=== PATIENT | female | born 1990 | race Caucasian/White ===

== ENCOUNTER 2016-09-04 06:57 | Day surgery (SDC) | payer OTHER ==
[2016-09-03 09:53] LABS: HEMATOCRIT 38.2 % (36.0-47.0); HEMOGLOBIN 13.1 g/dL (12.0-15.5); HGB HCT DIFFERENCE 1.1; MEAN CORPUSCULAR HEMOGLOBIN 30.2 pg (27.0-33.4); MEAN CORPUSCULAR HGB CONC 34.3 g/dL (32.0-36.0); MEAN CORPUSCULAR VOLUME 88 fl (80-97); RED BLOOD COUNT 4.35 10^6/uL (3.72-5.28); RED CELL DISTRIBUTION WIDTH 13.9 % (11.5-14.0); WHITE BLOOD COUNT 6.5 10^3/uL (4.0-10.5)
[2016-09-03 10:15] LABS: ALANINE AMINOTRANSFERASE 27 U/L (9-52); ALBUMIN 3.8 g/dL (3.5-5.0); ALKALINE PHOSPHATASE 47 U/L (38-126); AMYLASE 59 U/L (30-110); ANION GAP 14 (5-19); ASPARTATE AMINO TRANSFERASE 15 U/L (14-36); BILIRUBIN,TOTAL 0.5 mg/dL (0.2-1.3); BLOOD UREA NITROGEN 14 mg/dL (7-20); CALCIUM 9.5 mg/dL (8.4-10.2); CARBON DIOXIDE 21 mmol/L (22-30); CHLORIDE 106 mmol/L (98-107); CREATININE RESULT 0.74 mg/dL (0.52-1.25); POTASSIUM 4.1 mmol/L (3.6-5.0); SODIUM 141.1 mmol/L (137-145); TOTAL PROTEIN 6.5 g/dL (6.3-8.2)
[2016-09-03 10:17] LABS: GLUCOSE 97 mg/dL (75-110)
[~2016-09-04 06:57] MED LIST: ACETAMINOPHEN 325 MG TABLET PO PRN; CEFAZOLIN SODIUM 1 GM in DEXTROSE 5%-WATER 50 ML IV PRN; LACTATED RINGERS 1000 ML IV PRN; LIDOCAINE 0.5% INJ-PF (5 MG/ML) 50 ML SDV SUBCUT PRN
[2016-09-04] MEDS ORDERED: BUPIVACAINE HCL 0.25 % INJ/PF (2.5 MG/1 ML) 30 ML VIAL ONE (09:09)
[2016-09-04] MEDS ORDERED: HYDROMORPHONE HCL INJ/PF 2 MG/ML AMPULE ONE (09:20)
[2016-09-04] MEDS ORDERED: FENTANYL CITRATE INJ/PF 250 MCG/5 ML AMPULE ONE (09:20)
[2016-09-04] MEDS ORDERED: ACETAMINOPHEN 100 ML IV ONE (09:21)
[2016-09-04] MEDS ORDERED: PROPOFOL INJ 200 MG/20 ML VIAL IV ONE (09:21)
[2016-09-04] MEDS ORDERED: MIDAZOLAM 2 MG/2 ML INJ ONE (09:21)
[2016-09-04] MEDS ORDERED: DIPHENHYDRAMINE HCL 50 MG/ML VIAL IV PRN (09:54)
[2016-09-04] MEDS ORDERED: MORPHINE SULFATE 10 MG/ML INJ IV PRN ×2 (09:54→10:11)
[2016-09-04] MEDS ORDERED: PROMETHAZINE HCL INJ 25 MG/1 ML VIAL IV PRN ×2 (09:54)
[2016-09-04] MEDS ORDERED: MEPERIDINE HCL/PF INJ 25 MG/1 ML DISP.SYRIN IV PRN (09:54)
[2016-09-04] MEDS ORDERED: FENTANYL CITRATE INJ/PF 100 MCG/2 ML AMPUL IV PRN ×3 (09:54)
[2016-09-04] MEDS ORDERED: ONDANSETRON HCL INJ/PF 4 MG/2 ML SDV IV PRN (10:11)
[2016-09-04] MEDS ORDERED: OXYCODONE-ACETAMINOPHEN 5-325 MG TABLET PO PRN (10:11)
--- NOTE | 2016-09-04 10:11 | Operative Report ---
Operative Report DATE OF SURGERY: 09/04/16 PREOPERATIVE DIAGNOSIS: Biliary dyskinesia POSTOPERATIVE DIAGNOSIS: same OPERATION: Laparoscopic cholecystectomy SURGEON: PATRICK CHERRY 1ST RETAIL FINANCIAL ANALYST: MACKENZIE SAEED ANESTHESIA: GA TISSUE REMOVED OR ALTERED: 1 gallbladder COMPLICATIONS: None ESTIMATED BLOOD LOSS: scant INTRAOPERATIVE FINDINGS: See below PROCEDURE: After obtaining informed consent, the patient was taken to the operating room. General Anesthesia was induced; the arms were extended, and the abdomen was exposed, and prepped and draped in a sterile fashion. Instrumentation was set up for laparoscopic cholecystectomy. Surgical plan and surgical timeout were conducted. A vertical incision was made above the umbilicus, and a verres needle was inserted uneventfully into the peritoneal cavity. Pneumoperitoneum was established. The verres needle was removed and a 5 mm trocar was inserted and a 5 mm flexible laparoscope was inserted. Visualization of the peritoneal cavity confirmed safe uneventful entry. Under direct visualization 3 additional 5 mm ports were established, one in the subxiphoid position and second in the subcostal position. Visualization of the hepatobiliary anatomy revealed no anatomic variations. Of note there were moderately dense adhesions between the undersurface of the gallbladder, and the gastroduodenal tissue area and these adhesions were taken down using a combination of blunt and electrocautery dissection. A grasper was placed on the fundus of the gallbladder and the gallbladder is elevated over the right surface of the liver; a second grasper was used to grasp the infundibulum of the gallbladder. The neck of the gallbladder and junction with the cystic duct was dissected out. The Cystic artery was in its usual location medial and cephalad to the cystic duct. The cystic artery was surrounded with a right angle clamp, clipped twice proximally and divided with laparoscopic scissors. We now opened the triangle of Calot by dividing the peritoneal reflection on both the medial and lateral sides of the cystic duct infundibular junction. The critical view was obtained. We now milked the cystic duct of any possible stones, clipped the cystic duct approximately 2 times once distally and divided with scissors. The gallbladder was now removed from the undersurface of the liver using hook cautery dissection. Graspers were repositioned and the gallbladder was removed uneventfully from the abdominal cavity through the super umbilical port site incision. The specimen was examined, then passed off to pathology for permanent analysis. We returned to the peritoneal cavity check for bleeding, and evidence of bile leak, and there was none. We Confirmed satisfactory placement of clips on cystic duct and cystic artery were secured . At this point we felt the operation was complete. The subcutaneous tissue was then anesthetized with quarter percent Marcaine Sponge and needle counts are correct. All ports removed under direct visualization pneumoperitoneum evacuated, and 5 mm port wounds closed with 3-0 Vicryl suture, benzoin and Steri-Strips. The patient was extubated, and taken to the recovery room in stable condition. The physician transportation assistant, Ms. Saeed, provided assistance during this case by: Assisting and port insertion, retracting tissue, instillation of local anesthesia and closure of skin incisions.
--- NOTE | 2016-09-04 10:16 | PDOC DISCHARGE SUMMARY ---
Discharge Summary (SDC) - Discharge Final Diagnosis: Biliary dyskinesia Date of Surgery: 09/04/16 Condition: Good Treatment or Instructions: [facility] [address], [place] [address] Discharge Instructions: Laparoscopic Surgery 1. General Information: a. DO NOT DRIVE a car or operate dangerous machinery for 3-4 days or while taking narcotic pain pills. b. DO NOT consume alcohol, tranquilizers, sleeping medications or any non- prescribed medications for 24 hours unless approved by your doctor or as long as taking narcotic prescription medications. c. DO NOT make important decisions or sign any important papers for the first 24 hours after surgery. d. When discharged home the same day of surgery have a responsible person with you for the first night. 2. Activity Restrictions: 2 weeks. a. NO heavy lifting, straining abdominal muscles, bending over a lot, yard work, house work, or sports for [address] for 3-4 days or while taking Percocet . c. It is fine to go for walks, up and down steps, ride in a car. d. Elevate your head when sleeping/resting. 3. Treatment: a. You may shower 24 hours after surgery, no baths or swimming for 2 weeks. Remove band-aids or dressings before shower but leave paper strips (steri-strips ) on the skin to fall off on their own. If still on at postoperative visit they will be removed then. b. Drainage of fluid or blood is not unusual from an incision. If occurs, you can clean with peroxide and cotton ball daily and cover with dry gauze until the wound seals. c. If a lot of bleeding occurs, you can hold pressure with a gauze or cloth over the site for 10 minutes and it will usually stop. If bleeding continues you will need to call for possible evaluation in office or emergency room. 4. Medications: a. percocet may be taken for pain as needed, one or two tablets every 4-6 hours. Stop the narcotic when able since you cannot take it and drive, and they cause constipation. You may switch to plain Tylenol, Advil or Aleve as you transition from the narcotic. Many adults find good pain relief with Advil 600- 800 mg three times a day with meals. This can cause indigestion, ulcers, and kidney problems with long-term use. b. You should resume all normal medications unless a change is specified by your doctors. c. Begin with clear liquids and may progress to your normal diet if not nauseated. No high fat, high protein foods the day of surgery. Normal diet 6. The following may occur after laparoscopic surgery: a. Shoulder or upper back ache from retained gas that should resolve in 1-2 days b. Soreness and bruising at incision sites will resolve with time. c. Scrotal swelling (labia in women) and bruising is often seen after hernia surgery. d. Sore throat e. Fatigue may last days to weeks. f. Difficulty urinating may occur and may need to come into emergency room for urinary catheter placement. 7. Notify Physician If: a. Worsening or pain not improved with pain medication b. Persistent nausea and vomiting c. Fever above 101 d. Persistent bleeding or swelling at operative site e. Unable to urinate and uncomfortable bladder 6-8 hours after surgery 8..Follow Up Care: a. Schedule a follow up appointment with your doctor for 2 weeks. In the event of any postoperative problems or questions or you may call the office during business hours or the On-Call physician evenings and weekends at [facility]. [facility] I understand the instructions for my postoperative care as described above and a copy has been given to me. Patient/Significant Other Witness Date Prescriptions: Oxycodone HCl/Acetaminophen [Percocet 2.5-325 Mg Tablet] 1 each PO Q4 PRN #14 tablet PRN Reason: Discharge Activity: Activity As Tolerated Home Care Assistance: None Needed Report the Following to Your Physician Immediately: Shortness of Breath, Increase in Pain, Fever over 101 Degrees
[2016-09-04] MEDS ORDERED: FENTANYL CITRATE INJ/PF 100 MCG/2 ML AMPUL ONE (10:45)
[2016-09-04] MEDS ORDERED: DEXAMETHASONE SOD PHOSPHATE INJ 4 MG/1 ML VIAL ONE (12:25)
[2016-09-04] MEDS ORDERED: NEOSTIGMINE METHYLSULFATE 10 MG/10 ML VIAL ONE (12:25)
[2016-09-04] MEDS ORDERED: GLYCOPYRROLATE INJ 0.4 MG/2 ML VIAL ONE (12:25)
[2016-09-04] MEDS ORDERED: ROCURONIUM BROMIDE INJ 50 MG/5 ML VIAL IV ONE (12:25)
[2016-09-04] MEDS ORDERED: ONDANSETRON HCL INJ/PF 4 MG/2 ML SDV ONE (12:25)
[2016-09-04 12:43] VITALS: BP 126/77
== END 2016-09-04 12:25 | disposition home or self-care (01) ==
LOC: OROUT 06:57
PROVIDERS: ATTEND Surgery
PROC: 0FT44ZZ Resection of Gallbladder, Percutaneous Endoscopic Approach (ICD-10-PCS; principal; 2016-09-04 09:00)
DX: K81.1 Chronic cholecystitis (principal); K82.8 Other specified diseases of gallbladder; F17.210 Nicotine dependence, cigarettes, uncomplicated; Z88.5 Allergy status to narcotic agent
CPT/HCPCS: 36415; 82150; 85027; 81025; 80076; 80048; 88304 ×2; 47562; J2250; J0690; J3490; J1100; J3010 ×2; J1170; J2405; J2704; J0131; 790

== ENCOUNTER 2018-07-12 23:20 | Emergency (ER) | payer OTHER ==
--- NOTE | 2018-07-13 00:06 | ER Document Report ---
ED General - General Chief Complaint: Chest Pain, arm pain & numbness, dizziness Stated Complaint: CHEST PAIN, ARM PAIN NUMBNESS, DIZZY Time Seen by Provider: 07/12/18 23:50 TRAVEL OUTSIDE OF THE [place] IN LAST 30 DAYS: No - HPI Patient complains to provider of: chest pain today, dizziness yesterday Notes: 27-year-old female with past medical history of asthma presents to the emergency department for chest pain since today, dizziness yesterday, that started with arm pain and numbness 4 days ago. She denies any lightheadedness, diaphoresis, dizziness, numbness or tingling, nausea, vomiting currently at this time. She said chest pain is "mild discomfort", pain score as 1 patient endorses having palpitations for the last 2-3 years with a previous workup that was negative. Patient currently smokes half pack per day times 16 years. - Related Data Allergies/Adverse Reactions: Tuberculin,Ppd,Multi-Puncture [From Tuberculin PPD Jen Test] Allergy (Severe, Verified 09/03/16 08:20) Anaphylaxis tramadol Adverse Reaction (Verified 09/03/16 13:31) VOMITING Past Medical History - General Information source: Patient - Social History Smoking Status: Current Every Day Smoker Cigarette use (# per day): Yes - 10 Chew tobacco use (# tins/day): No Frequency of alcohol use: None Drug Abuse: None Lives with: Spouse/Significant other Family History: Reviewed & Not Pertinent - Past Medical History Cardiac Medical History: Denies: Hx Coronary Artery Disease, Hx Heart Attack, Hx Hypertension Pulmonary Medical History: Reports: Hx Asthma - as a child and teenager Denies: Hx Bronchitis, Hx COPD, Hx Pneumonia Neurological Medical History: Denies: Hx Cerebrovascular Accident, Hx Seizures Musculoskeletal Medical History: Denies Hx Arthritis Past Surgical History: Reports: Hx Gynecologic Surgery - r/o endometriosis - Immunizations Hx Diphtheria, Pertussis, Tetanus Vaccination: Yes Review of Systems - Review of Systems Constitutional: denies: Chills, Diaphoresis, Weakness EENT: No symptoms reported Cardiovascular: See HPI, Chest pain, Dizziness. denies: Palpitations, Syncope, Lightheaded Respiratory: No symptoms reported Gastrointestinal: No symptoms reported Genitourinary: No symptoms reported Musculoskeletal: No symptoms reported Neurological/Psychological: Numbness - 4 days ago left arm Physical Exam - Vital signs Vitals: Temp Pulse Resp BP Pulse Ox 98.1 F 80 16 129/73 H 99 07/12/18 23:45 07/12/18 23:45 07/12/18 23:45 07/12/18 23:45 07/12/18 23:45 Interpretation: Normal - General General appearance: Appears well, Alert In distress: None - HEENT Head: Normocephalic, Atraumatic Eyes: Normal Extraocular movements intact: Yes Pupils: PERRL Neck: Normal - Respiratory Respiratory status: No respiratory distress Chest status: Nontender Breath sounds: Normal Chest palpation: Normal - Cardiovascular Rhythm: Regular Heart sounds: Normal auscultation Murmur: No - Abdominal Inspection: Normal Distension: No distension Bowel sounds: Normal Tenderness: Nontender Organomegaly: No organomegaly - Back Back: Normal, Nontender - Extremities General upper extremity: Normal inspection, Nontender, Normal color, Normal ROM , Normal temperature General lower extremity: Normal inspection, Nontender, Normal color, Normal ROM , Normal temperature, Normal weight bearing. No: Yessi's sign - Neurological Neuro grossly intact: Yes Cognition: Normal Orientation: AAOx4 Kaylin Coma Scale Eye Opening: Spontaneous Kaylin Coma Scale Verbal: Oriented Kaylin Coma Scale Motor: Obeys Commands Kaylin Coma Scale Total: 15 Speech: Normal Motor strength normal: LUE, RUE, LLE, RLE Sensory: Normal - Psychological Associated symptoms: Normal affect, Normal mood - Skin Skin Temperature: Warm Skin Moisture: Dry Skin Color: Normal Course - Re-evaluation Re-evalutation: 07/13/18 00:[address] Holloway. Plan to get chest x-ray, troponin, BMP, and CBC. 07/13/18 00:58 Chest x-ray showed no focal infiltrate, no abnormalities. Initial troponin was negative. Platelets at 144,000, BMP was unremarkable 07/13/18 04:21 Second troponin was negative. Patient is stable for discharge. - Vital Signs Vital signs: Temp Pulse Resp BP Pulse Ox 98.1 F 80 16 129/73 H 99 07/12/18 23:45 07/12/18 23:45 07/12/18 23:45 07/12/18 23:45 07/12/18 23:45 - Laboratory Result Diagrams: 07/13/18 00:08 07/13/18 00:08 Laboratory results interpreted by me: 07/13/18 07/13/18 00:08 00:08 RDW 14.1 H Plt Count 144 L Chloride 108 H Discharge - Discharge Clinical Impression: Chest pain of uncertain etiology Condition: Good Disposition: HOME, SELF-CARE Instructions: Chest Pain of Unclear Cause ([facility]) Additional Instructions: You were seen today for chest pain. The exact cause of your pain is unclear. However, based on your cardiac enzyme testing, chest x-ray, and EKG it does not appear that it is from an immediately life-threatening cause at this time. Although your testing here is normal is critical that you follow-up with your primary care physician within the next 24-48 hours for continued evaluation of this chest pain and possible stress testing. Please return to emergency department immediately if you have worsening of your chest pain, shortness of breath, vomiting, become unable to exert yourself due to pain or difficulty breathing, you pass out, or have any pain that radiates into your arms, jaw, or back. Please also return if you have any additional symptoms that are concerning to you. Referrals: RAMIRO ENGLISH, DO [Primary Care Provider] - Follow up as needed
[2018-07-13 00:24] LABS: ABSOLUTE BASOPHILS # (AUTO) 0.1 10^3/uL (0.0-0.2); ABSOLUTE EOSINOPHILS # (AUTO) 0.3 10^3/uL (0.0-0.6); ABSOLUTE LYMPHOCYTES (AUTO) 1.5 10^3/uL (0.5-4.7); ABSOLUTE MONOCYTES (AUTO) 0.4 10^3/uL (0.1-1.4); ABSOLUTE NEUT (AUTO) 3.2 10^3/uL (1.7-8.2); BASOPHILS % (AUTO) 1.3 % (0-2); HEMATOCRIT 37.7 % (36.0-47.0); HEMOGLOBIN 12.8 g/dL (12.0-15.5); LYMPHOCYTES % (AUTO) 26.8 % (13-45); MEAN CORPUSCULAR HEMOGLOBIN 30.5 pg (27.0-33.4); MEAN CORPUSCULAR HGB CONC 33.9 g/dL (32.0-36.0); MEAN CORPUSCULAR VOLUME 90 fl (80-97); PLATELET COUNT 144 10^3/uL (150-450); RED CELL DISTRIBUTION WIDTH 14.1 % (11.5-14.0); SEGMENTED NEUTROPHILS % (AUTO) 58.9 % (42-78); TOTAL CELLS COUNTED % (AUTO) 100 %; WHITE BLOOD COUNT 5.5 10^3/uL (4.0-10.5)
[2018-07-13 00:40] LABS: BLOOD UREA NITROGEN 14 mg/dL (7-20); CALCIUM 9.5 mg/dL (8.4-10.2); CARBON DIOXIDE 24 mmol/L (22-30); CHLORIDE 108 mmol/L (98-107); GLUCOSE 99 mg/dL (75-110); POTASSIUM 3.8 mmol/L (3.6-5.0)
[2018-07-13 00:41] LABS: ANION GAP 12 (5-19)
--- NOTE | 2018-07-13 00:57 | RADIOLOGY REPORT (SQ) ---
EXAM DESCRIPTION: XR CHEST 1 VIEW COMPLETED DATE/TME: 07/13/2018 00:06 CLINICAL HISTORY: 27 years, Female, chest pain COMPARISON: None. NUMBER OF VIEWS: TECHNIQUE: LIMITATIONS: None. FINDINGS: No evidence of pulmonary infiltrate or pleural effusion. The heart and mediastinum are unremarkable. Pulmonary vascularity appears normal. IMPRESSION: Normal chest x-ray. 2010 [employer]- All Rights Reserved
[2018-07-13 04:33] VITALS: BP 117/67
--- NOTE | 2018-07-13 06:23 | EKG REPORT ---
SEVERITY:- BORDERLINE ECG - SINUS RHYTHM PROBABLE LEFT ATRIAL ABNORMALITY BORDERLINE T ABNORMALITIES, ANTERIOR LEADS : Confirmed by: Juvencio Reed MD 13-Jul-2018 06:22:23
== END 2018-07-13 04:37 | disposition home or self-care (01) ==
LOC: ER 23:20
DX: R07.9 Chest pain, unspecified (principal); R00.2 Palpitations; R42 Dizziness and giddiness; F17.210 Nicotine dependence, cigarettes, uncomplicated; Z88.7 Allergy status to serum and vaccine
CPT/HCPCS: 36415; 71045; 80048; 84484; 85025; 93005; 93010; 99285

== ENCOUNTER 2018-10-13 21:16 | Emergency (ER) | payer OTHER ==
[2018-10-14] MEDS ORDERED: METOCLOPRAMIDE HCL INJ/PF 10 MG/2 ML SDV IV ONE (00:09)
[2018-10-14] MEDS ORDERED: DIPHENHYDRAMINE HCL 50 MG/ML VIAL IV ONE (00:09)
[2018-10-14] MEDS ORDERED: NORMAL SALINE 500 ML IV ONE (00:11)
[2018-10-14] MEDS ORDERED: TRANEXAMIC ACID INJ/PF 1,000 MG/10 ML SDV IV ONE (00:15)
--- NOTE | 2018-10-14 00:16 | ER Document Report ---
ED General - General Chief Complaint: Vaginal Bleeding Stated Complaint: vaginal bleeding Time Seen by Provider: 10/13/18 23:55 Primary Care Provider: RAMIRO ENGLISH DO [Primary Care Provider] - Follow up as needed Mode of Arrival: Ambulatory Information source: Patient, [facility] Records Notes: 28-year-old female with pelvic dysfunction disorder, bladder prolapse, th rombocytopenia presents with concern for 3 weeks of heavy vaginal bleeding. Patient states that she has been bleeding for 3 weeks consistently. She reports that she is passing large clots and is requiring to change her tampon every hour. Patient denies prior similar heavy periods. She is on control currently. She does not believe that she is . Patient also complaining of headache but denies nausea, photophobia, dizziness, shortness of breath, palpitations. Patient does state that she is currently working with her MANAGER GENERAL for her bladder prolapse and they have discussed possible hysterectomy. Patient also reports abdominal cramping that has not been relieved with Motrin, Tylenol. TRAVEL OUTSIDE OF THE [place] IN LAST 30 DAYS: No - HPI Onset: Other Onset/Duration: Gradual Quality of pain: Cramping Severity: Mild Associated symptoms: denies: Chest pain, Productive cough, Fever, Nausea, Vomiting, Shortness of breath Exacerbated by: Denies Relieved by: Denies Similar symptoms previously: No Recently seen / treated by doctor: Yes - Related Data Allergies/Adverse Reactions: Tuberculin,Ppd,Multi-Puncture [From Tuberculin PPD Jen Test] Allergy (Severe, Verified 09/03/16 08:20) Anaphylaxis tramadol Adverse Reaction (Verified 09/03/16 13:31) VOMITING Past Medical History - General Information source: Patient, [facility] Records - Social History Smoking Status: Current Every Day Smoker Cigarette use (# per day): Yes - 5 Smoking Education Provided: Yes - Smoking cessation counseling was provided for 4 minutes at the bedside Frequency of alcohol use: None Drug Abuse: None Lives with: Family Family History: Reviewed & Not Pertinent Patient has suicidal ideation: No Patient has homicidal ideation: No - Past Medical History Cardiac Medical History: Denies: Hx Coronary Artery Disease, Hx Heart Attack, Hx Hypertension Pulmonary Medical History: Reports: Hx Asthma - as a child and teenager Denies: Hx Bronchitis, Hx COPD, Hx Pneumonia Neurological Medical History: Denies: Hx Cerebrovascular Accident, Hx Seizures Renal/ Medical History: Denies: Hx Peritoneal Dialysis Musculoskeletal Medical History: Denies Hx Arthritis Past Surgical History: Reports: Hx Gynecologic Surgery - r/o endometriosis - Immunizations Hx Diphtheria, Pertussis, Tetanus Vaccination: Yes Review of Systems - Review of Systems Notes: REVIEW OF SYSTEMS: CONSTITUTIONAL : Denies fever, chills, or sweats. Denies recent illness. Denies weight loss, recent hospitalizations. EENT: Denies visual changes, eye pain. Denies sore throat, oral lesions, difficulty swallowing. CARDIOVASCULAR: Denies chest pain. Denies palpitations. Denies lower extremity edema. RESPIRATORY: Denies cough. Denies shortness of breath, wheezing. GASTROINTESTINAL: Denies abdominal distention. Denies nausea, vomiting, or diarrhea. Denies blood in vomitus, stools, or per rectum. Denies black, tarry stools. Denies constipation. GENITOURINARY: Denies difficulty urinating, painful urination, frequency, blood in urine, or vaginal discharge. MUSCULOSKELETAL: Denies back or neck pain or stiffness. Denies joint pain or swelling. SKIN: Denies rash, lesions or sores. HEMATOLOGIC : Denies easy bruising or bleeding. LYMPHATIC: Denies swollen glands. NEUROLOGICAL: Denies confusion or altered mental status. Denies loss of consciousness. Denies dizziness or lightheadedness. Denies weakness or paralysis. Denies problems difficulty with ambulation, slurred speech. Denies sensory loss, numbness, or tingling. Denies seizures. PSYCHIATRIC: Denies anxiety or stress. Denies depression, suicidal ideation, or homicidal ideation. Denies visual or auditory hallucinations. PHYSICAL EXAMINATION: GENERAL: Well-appearing, well-nourished and in no acute distress. HEAD: Atraumatic, normocephalic. EYES: Pupils equal round and reactive to light, extraocular movements intact, conjunctiva are normal. ENT: Nares patent, oropharynx clear without exudates. Moist mucous membranes. NECK: Normal range of motion, supple without lymphadenopathy LUNGS: Breath sounds clear to auscultation bilaterally and equal. No wheezes rales or rhonchi. HEART: Regular rate and rhythm without murmurs ABDOMEN: Soft, nontender, nondistended abdomen. No guarding, no rebound. No masses appreciated. Female : Ox closed, vaginal wall unremarkable, external genitalia unremarkable, heavy bleeding. No cervical motion tenderness. Musculoskeletal: Normal range of motion, no pitting or edema. No cyanosis. NEUROLOGICAL: Cranial nerves grossly intact. Normal speech, normal gait. Normal sensory, motor exams PSYCH: Normal mood, normal affect. SKIN: Warm, Dry, normal turgor, no rashes or lesions noted. Physical Exam - Vital signs Vitals: Temp Pulse Resp BP Pulse Ox 98.3 F 82 16 127/83 H 98 10/13/18 21:20 10/13/18 21:20 10/13/18 21:20 10/13/18 21:20 10/13/18 21:20 Course - Re-evaluation Re-evalutation: Temp Pulse Resp BP Pulse Ox 98.3 F 82 16 127/83 H 98 10/13/18 21:20 10/13/18 21:20 10/13/18 21:20 10/13/18 21:20 10/13/18 21:20 Laboratory 10/14/18 10/14/18 01:10 01:10 WBC 5.5 RBC 4.41 Hgb 13.4 Hct 39.0 MCV 88 MCH 30.3 MCHC 34.3 RDW 13.2 Plt Count 168 Seg Neutrophils % 49.2 Lymphocytes % 39.0 Monocytes % 6.5 Eosinophils % 4.8 Basophils % 0.5 Absolute Neutrophils 2.7 Absolute Lymphocytes 2.1 Absolute Monocytes 0.4 Absolute Eosinophils 0.3 Absolute Basophils 0.0 Urine Color YELLOW Urine Appearance SLIGHTLY-CLOUDY Urine pH 7.0 Ur Specific [place] 1.023 Urine Protein NEGATIVE Urine Glucose (UA) NEGATIVE Urine Ketones NEGATIVE Urine Blood NEGATIVE Urine Nitrite NEGATIVE Urine Bilirubin NEGATIVE Urine Urobilinogen NEGATIVE Ur Leukocyte Esterase NEGATIVE Urine WBC (Auto) 0 Urine RBC (Auto) 1 Squamous Epi Cells Auto 1 Urine Mucus (Auto) RARE Urine Ascorbic Acid NEGATIVE Urine HCG, Qual NEGATIVE Temp Pulse Resp BP Pulse Ox 97.9 F 69 16 119/68 98 10/14/18 01:34 10/14/18 01:34 10/14/18 01:34 10/14/18 01:34 10/14/18 01:34 10/14/18 00:14 28-year-old female presents with concern of heavy vaginal bleeding that has been ongoing for 3 weeks. Vital signs reviewed upon arrival and patient is afebrile, normotensive and not tachycardic. Patient does not appear toxic or dehydrated. She is in no acute distress. Previous medical records and nursing notes reviewed. Patient received IV fluids, Reglan, Benadryl and Toradol for her headache which she reports has resolved on reevaluation. CBC shows a stable he moglobin and patient is not . Patient did receive TXA for her heavy vaginal bleeding. She will be prescribed this for home-going. She was advised to follow-up with her MANAGER GENERAL as already scheduled to discuss possible hysterectomy. Patient was evaluated and treated as appropriate for the p atient's presenting symptoms and complaint, with consideration of any critical or life threatening conditions that may be associated with their obtained history and exam as noted above. All results were discussed with patient. Patient provided the opportunity to ask questions, and express concerns. Patient was educated on treatments based on their presumed diagnosis as noted above. At this time we will discharge the patient with return precautions and follow-up recommendations. Verbal discharge instructions given a the bedside. Medication warnings reviewed. Patient is in agreement with this plan and has verbalized understanding of return precautions. After careful consideration I feel that that patient can be safely discharged from the emergency department, they were advised to followup with a primary care physician in 2-3 days. Dictation on this chart was performed using voice recognition software and may result in unintended grammatical, spelling, syntax or errors. 10/14/18 02:08 - Vital Signs Vital signs: Temp Pulse Resp BP Pulse Ox 97.9 F 69 16 119/68 98 10/14/18 01:34 10/14/18 01:34 10/14/18 01:34 10/14/18 01:34 10/14/18 01:34 - Laboratory Result Diagrams: 10/14/18 01:10 Discharge - Discharge Clinical Impression: Abdominal cramping, Episode of heavy vaginal bleeding Headache Qualifiers: Headache type: unspecified Headache chronicity pattern: acute headache Intractability: not intractable Qualified Code(s): R51 - Headache Condition: Good Disposition: HOME, SELF-CARE Instructions: Headache ([facility]), Vaginal Bleeding ([facility]), Abdominal Pain ([facility]) Prescriptions: Tranexamic Acid 1,300 mg PO Q8H #30 tablet Forms: Smoking Cessation Education Referrals: RAMIRO ENGLISH, [Primary Care Provider] - Follow up as needed
[2018-10-14 01:27] LABS: ABSOLUTE EOSINOPHILS # (AUTO) 0.3 10^3/uL (0.0-0.6); ABSOLUTE LYMPHOCYTES (AUTO) 2.1 10^3/uL (0.5-4.7); ABSOLUTE MONOCYTES (AUTO) 0.4 10^3/uL (0.1-1.4); ABSOLUTE NEUT (AUTO) 2.7 10^3/uL (1.7-8.2); BASOPHILS % (AUTO) 0.5 % (0-2); EOSINOPHILS % (AUTO) 4.8 % (0-6); HEMOGLOBIN 13.4 g/dL (12.0-15.5); MEAN CORPUSCULAR HEMOGLOBIN 30.3 pg (27.0-33.4); MEAN CORPUSCULAR HGB CONC 34.3 g/dL (32.0-36.0); MEAN CORPUSCULAR VOLUME 88 fl (80-97); MONOCYTES % (AUTO) 6.5 % (3-13); PLATELET COUNT 168 10^3/uL (150-450); RED BLOOD COUNT 4.41 10^6/uL (3.72-5.28); RED CELL DISTRIBUTION WIDTH 13.2 % (11.5-14.0); SEGMENTED NEUTROPHILS % (AUTO) 49.2 % (42-78); TOTAL CELLS COUNTED % (AUTO) 100 %; WHITE BLOOD COUNT 5.5 10^3/uL (4.0-10.5)
[2018-10-14 01:36] LABS: APPEARANCE,URINE SLIGHTLY-CLOUDY; BILIRUBIN,URINE NEGATIVE (NEGATIVE); COLOR,URINE YELLOW; GLUCOSE, URINE NEGATIVE (NEGATIVE); KETONES,URINE NEGATIVE (NEGATIVE); LEUKOCYTE ESTERASE,URINE NEGATIVE (NEGATIVE); NITRITE,URINE NEGATIVE (NEGATIVE); PROTEIN,URINE NEGATIVE (NEGATIVE); URINE SPECIFIC GRAVITY 1.023; UROBILINOGEN,URINE NEGATIVE mg/dL (<2.0)
[2018-10-14] MEDS ORDERED: KETOROLAC TROMETHAMINE INJ/PF 30 MG/1 ML SDV IV ONE (01:38)
[2018-10-14 03:17] VITALS: BP 111/68
== END 2018-10-14 03:21 | disposition home or self-care (01) ==
LOC: ER 21:16
DX: N93.9 Abnormal uterine and vaginal bleeding, unspecified (principal); N81.10 Cystocele, unspecified; R10.9 Unspecified abdominal pain; R51 Headache; F17.210 Nicotine dependence, cigarettes, uncomplicated; Z71.6 Tobacco abuse counseling; Z79.3 Long term (current) use of hormonal contraceptives; Z88.7 Allergy status to serum and vaccine; Z87.892 Personal history of anaphylaxis
CPT/HCPCS: 99406; 99284; 96375; 96365; 36415; 84702; 85025; 81025; 81001; J1200; J1885; J2765; J7040; J3490

== ENCOUNTER 2018-12-07 12:48 | Emergency (ER) | payer OTHER ==
[2018-12-07] MEDS ORDERED: ONDANSETRON HCL INJ/PF 4 MG/2 ML SDV IV ONE ×2 (13:29→15:48)
[2018-12-07] MEDS ORDERED: NORMAL SALINE 1000 ML 1,000 ML IV ONE ×2 (13:29→16:49)
--- NOTE | 2018-12-07 13:31 | ER Document Report ---
ED Medical Screen (RME) - General Chief Complaint: Abdominal Pain Stated Complaint: ABDOMINAL PAIN Time Seen by Provider: 12/07/18 13:25 Primary Care Provider: RAMIRO ENGLISH DO [Primary Care Provider] - Follow up as needed Mode of Arrival: Wheelchair Information source: Patient Notes: Patient is a 28-year-old female who presents to the emergency department with complaints of abdominal pain with nausea, vomiting and diarrhea on . Patient denies any fever. Reports the pain is located in the mid abdomen and right lower quadrant. She denies any dysuria or abnormal vaginal discharge. Patient reports surgical history of a cholecystectomy. Exam: Generalized tenderness to palpation. Exam limited by patient positioning. I have greeted and performed a rapid initial assessment of this patient. A comprehensive ED assessment and evaluation of the patient, analysis of test results and completion of the medical decision making process will be conducted by additional ED providers. Dictation of this chart was performed using voice recognition software; therefore, there may be some unintended grammatical errors. TRAVEL OUTSIDE OF THE [place] IN LAST 30 DAYS: No - Related Data Allergies/Adverse Reactions: Tuberculin,Ppd,Multi-Puncture [From Tuberculin PPD Jen Test] Allergy (Severe, Verified 12/07/18 13:00) Anaphylaxis tramadol Adverse Reaction (Verified 12/07/18 13:00) VOMITING Past Medical History - Social History Chew tobacco use (# tins/day): - 1/2 ppd Frequency of alcohol use: None Drug Abuse: None - Past Medical History Cardiac Medical History: Denies: Hx Coronary Artery Disease, Hx Heart Attack, Hx Hypertension Pulmonary Medical History: Reports: Hx Asthma - as a child and teenager Denies: Hx Bronchitis, Hx COPD, Hx Pneumonia Neurological Medical History: Denies: Hx Cerebrovascular Accident, Hx Seizures Renal/ Medical History: Denies: Hx Peritoneal Dialysis Musculoskeltal Medical History: Denies Hx Arthritis Past Surgical History: Reports: Hx Cholecystectomy, Hx Gynecologic Surgery - r/o endometriosis - Immunizations Hx Diphtheria, Pertussis, Tetanus Vaccination: Yes Physical Exam - Vital signs Vitals: Temp Pulse Resp BP Pulse Ox 98.0 F 116 H 16 151/105 H 95 12/07/18 13:02 12/07/18 13:02 12/07/18 13:02 12/07/18 13:02 12/07/18 13:02 Course - Vital Signs Vital signs: Temp Pulse Resp BP Pulse Ox 98.0 F 116 H 16 151/105 H 95 12/07/18 13:02 12/07/18 13:02 12/07/18 13:02 12/07/18 13:02 12/07/18 13:02 Doctor's Discharge - Discharge Referrals: RAMIRO ENGLISH DO [Primary Care Provider] - Follow up as needed
[2018-12-07 14:43] LABS: ABSOLUTE EOSINOPHILS # (AUTO) 0.2 10^3/uL (0.0-0.6); ABSOLUTE LYMPHOCYTES (AUTO) 1.1 10^3/uL (0.5-4.7); ABSOLUTE MONOCYTES (AUTO) 0.4 10^3/uL (0.1-1.4); ABSOLUTE NEUT (AUTO) 4.2 10^3/uL (1.7-8.2); BASOPHILS % (AUTO) 0.4 % (0-2); EOSINOPHILS % (AUTO) 2.9 % (0-6); HEMATOCRIT 43.7 % (36.0-47.0); HEMOGLOBIN 15.2 g/dL (12.0-15.5); LYMPHOCYTES % (AUTO) 18.7 % (13-45); MEAN CORPUSCULAR HEMOGLOBIN 30.5 pg (27.0-33.4); MEAN CORPUSCULAR HGB CONC 34.8 g/dL (32.0-36.0); MEAN CORPUSCULAR VOLUME 88 fl (80-97); MONOCYTES % (AUTO) 7.4 % (3-13); PLATELET COUNT 154 10^3/uL (150-450); RED BLOOD COUNT 4.99 10^6/uL (3.72-5.28); RED CELL DISTRIBUTION WIDTH 13.6 % (11.5-14.0); SEGMENTED NEUTROPHILS % (AUTO) 70.6 % (42-78); TOTAL CELLS COUNTED % (AUTO) 100 %; WHITE BLOOD COUNT 5.9 10^3/uL (4.0-10.5)
[2018-12-07] MEDS ORDERED: FENTANYL CITRATE INJ/PF 100 MCG/2 ML AMPUL IV ONE (14:53)
[2018-12-07 14:55] LABS: ALANINE AMINOTRANSFERASE 29 U/L (9-52); ALBUMIN 4.6 g/dL (3.5-5.0); ALKALINE PHOSPHATASE 84 U/L (38-126); ANION GAP 11 (5-19); ASPARTATE AMINO TRANSFERASE 27 U/L (14-36); BILIRUBIN,DIRECT 0.3 mg/dL (0.0-0.4); BILIRUBIN,TOTAL 0.4 mg/dL (0.2-1.3); BLOOD UREA NITROGEN 10 mg/dL (7-20); CALCIUM 9.8 mg/dL (8.4-10.2); CARBON DIOXIDE 20 mmol/L (22-30); CHLORIDE 108 mmol/L (98-107); GLUCOSE 94 mg/dL (75-110); LIPASE 86.1 U/L (23-300); POTASSIUM 3.5 mmol/L (3.6-5.0); SODIUM 139.1 mmol/L (137-145); TOTAL PROTEIN 7.8 g/dL (6.3-8.2)
--- NOTE | 2018-12-07 15:06 | ER Document Report ---
ED General - General Chief Complaint: Abdominal Pain Stated Complaint: ABDOMINAL PAIN Time Seen by Provider: 12/07/18 13:25 Primary Care Provider: RAMIRO ENGLISH DO [NO LOCAL MD] - Follow up in 3-5 days MAN BARON MD [ACTIVE STAFF] - Follow up tomorrow Mode of Arrival: Wheelchair Notes: Patient is a 28-year-old female who presents the emergency department with a chief complaint of abdominal pain. She states that her pain is at her umbilicus and radiates to her right side. States that she has had nausea, vomiting, diarrhea. Her last bout of vomiting was 2 days ago. She has had diarrhea every hour for the past few days. Past surgical history includes cholecystectomy. She is scheduled for hysterectomy for pelvic floor dysfunction, bladder prolapse, and rectocele. She is currently on Zoloft for her depression. Denies any headache, trauma, vaginal discharge, dysuria, or chest pain. TRAVEL OUTSIDE OF THE [place] IN LAST 30 DAYS: No - Related Data Allergies/Adverse Reactions: Tuberculin,Ppd,Multi-Puncture [From Tuberculin PPD Jen Test] Allergy (Severe, Verified 12/07/18 13:00) Anaphylaxis tramadol Adverse Reaction (Verified 12/07/18 13:00) VOMITING Past Medical History - General Information source: Patient - Social History Smoking Status: Current Every Day Smoker Chew tobacco use (# tins/day): - 1/2 ppd Frequency of alcohol use: None Drug Abuse: None Family History: Reviewed & Not Pertinent Patient has suicidal ideation: No Patient has homicidal ideation: No - Past Medical History Cardiac Medical History: Denies: Hx Coronary Artery Disease, Hx Heart Attack, Hx Hypertension Pulmonary Medical History: Reports: Hx Asthma - as a child and teenager Denies: Hx Bronchitis, Hx COPD, Hx Pneumonia Neurological Medical History: Denies: Hx Cerebrovascular Accident, Hx Seizures Renal/ Medical History: Denies: Hx Peritoneal Dialysis Musculoskeletal Medical History: Denies Hx Arthritis Past Surgical History: Reports: Hx Cholecystectomy, Hx Gynecologic Surgery - r/o endometriosis - Immunizations Hx Diphtheria, Pertussis, Tetanus Vaccination: Yes Review of Systems - Review of Systems Notes: REVIEW OF SYSTEMS: CONSTITUTIONAL : Denies recent illness. Denies recent unintentional weight loss. Denies fever, chills, or sweats. EENT: Denies eye, ear, throat, or mouth pain, discharge, or symptoms. Denies nasal or sinus congestion. CARDIOVASCULAR: Denies chest pain. RESPIRATORY: Denies shortness of breath, cough, congestion, difficulty breathing, or wheezing. GASTROINTESTINAL: See HPI. GENITOURINARY: Denies difficulty urinating, burning, blood in urine, urgency or frequency. MUSCULOSKELETAL: Denies neck and back pain. Denies joint pain or swelling. SKIN: Denies rash, itchiness, or lesions HEMATOLOGIC : Denies easy bruising or bleeding. LYMPHATIC: Denies swollen, painful, enlarged glands. NEUROLOGICAL: Denies no numbness or tingling denies weakness. Denies headache. Denies altered mental status. Denies alteration in speech. PSYCHIATRIC: Denies stress, anxiety, alteration in sleep patterns, or depression. All other systems reviewed and negative. Physical Exam - Vital signs Vitals: Temp Pulse Resp BP Pulse Ox 98.0 F 116 H 16 151/105 H 95 12/07/18 13:02 12/07/18 13:02 12/07/18 13:02 12/07/18 13:02 12/07/18 13:02 - Notes Notes: PHYSICAL EXAMINATION: GENERAL: Appears well, healthy, well-nourished, no acute distress. HEAD: Normocephalic, atraumatic. EYES: PERRL, conjunctiva normal, all extraocular movements intact, sclera nonicteric ENT: Moist mucous membranes. NECK: Supple, no noticeable swelling, redness, rash. Normal range of motion. LUNGS: Equal breath sounds bilaterally and clear to auscultation. No wheezes rales or rhonchi. CARDIOVASCULAR: Regular rate, irregular rhythm. Trigeminal/Bigeminal rhythm. Radial pulses 2+, normal. ABDOMEN: Normoactive bowel sounds. Soft, tender right lower quadrant, mild guarding. EXTREMITIES: Normal strength and range of motion, no pitting or edema. No cyanosis. NEUROLOGICAL: Moves all extremities upon command. Strength 5/5 in all extremities. PSYCH: Normal mood, normal affect. SKIN: Warm, dry. No rash, lesions, ulcerations noted. Normal skin turgor. Course - Re-evaluation Re-evalutation: 12/07/18 16:[address] of the abdomen shows a right hepatic lobe lesion, which is a possible hemangioma. She also has a right cyst, consistent with a corpus luteal cyst. Shows CT also shows atelectasis, but patient's lung sounds are clear. She most likely has atelectasis due to decreased noted due to pain. I discussed these findings with the patient. She will follow-up with her primary care in regards to her possible hemangioma. Patient's potassium is 3.5. I will give her 20 MEQ's of potassium IV, since she is nauseous and has some abdominal pain. 12/07/18 19:06 Patient's heart rate does not show any PVCs at this time. Her blood pressure is 114/76, which is an improvement from earlier. I suspect that patient has a better potassium due to her receiving replacements. She is nontoxic in appearance. She also received magnesium, which seems to have decreased the amount of PVCs she has. We had a long conversation about her anxiety. She states that her anxiety is under control, but is willing to go see her primary care again in regards to her anxiety. She also follow-up with cardiology outpatient. I have given her strict discharge instructions. Verbal discharge instructions were given to the patient. They verbalized understanding. They are stable for discharge. - Vital Signs Vital signs: Temp Pulse Resp BP Pulse Ox 98.0 F 116 H 20 105/61 100 12/07/18 13:02 12/07/18 13:02 12/07/18 19:55 12/07/18 20:02 12/07/18 18:06 - Laboratory Result Diagrams: 12/07/18 14:27 12/07/18 14:27 Laboratory results interpreted by me: 12/07/18 12/07/18 13:39 14:27 Potassium 3.5 L Chloride 108 H Carbon Dioxide 20 L Ur Leukocyte Esterase TRACE H Discharge - Discharge Clinical Impression: Frequent PVCs, Dehydration, Palpitations Abdominal pain Qualifiers: Abdominal location: unspecified location Qualified Code(s): R10.9 - Unspecified abdominal pain Diarrhea Qualifiers: Diarrhea type: unspecified type Qualified Code(s): R19.7 - Diarrhea, unspecified Condition: Stable Disposition: HOME, SELF-CARE Additional Instructions: You were seen today in the emergency department for abdominal pain. You have an ovarian cyst. Ovarian cyst may come and go, but usually go away. Your abdominal pain may also be caused by your diarrhea. There is a nodule on your liver. Follow-up with your primary care provider in regards to this. Please follow-up with your primary care doctor in regards to this visit. Please follow-up with the visual education teacher below in regards to your frequent palpitations. If you have worsening symptoms, or unable to eat or drink, or have any symptoms that are worrisome to you, please return to the emergency department. Forms: Smoking Cessation Education Referrals: RAMIRO ENGLISH DO [NO LOCAL MD] - Follow up in 3-5 days MAN BARON MD [ACTIVE STAFF] - Follow up tomorrow
[2018-12-07] MEDS ORDERED: POTASSI CL 20 MEQ/50 ML RIDER 20 MEQ/50 ML RTUPB IV ONE (15:12)
[2018-12-07 15:36] LABS: APPEARANCE,URINE SLIGHTLY-CLOUDY; BILIRUBIN,URINE NEGATIVE (NEGATIVE); COLOR,URINE YELLOW; GLUCOSE, URINE NEGATIVE (NEGATIVE); KETONES,URINE NEGATIVE (NEGATIVE); LEUKOCYTE ESTERASE,URINE TRACE (NEGATIVE); NITRITE,URINE NEGATIVE (NEGATIVE); PROTEIN,URINE NEGATIVE (NEGATIVE); URINE SPECIFIC GRAVITY 1.012; UROBILINOGEN,URINE NEGATIVE mg/dL (<2.0)
--- NOTE | 2018-12-07 16:54 | RADIOLOGY REPORT (SQ) ---
EXAM DESCRIPTION: CT ABD/PELVIS WITH IV ONLY COMPLETED DATE/TIME: 12/07/2018 4:29 pm REASON FOR STUDY: abdominal pain COMPARISON: Abdominal ultrasound examination dated 06/27/2016 TECHNIQUE: CT scan of the abdomen and pelvis performed using helical scanning technique with dynamic intravenous contrast injection. No oral contrast. Images reviewed with lung, soft tissue, and bone windows. Reconstructed coronal and sagittal MPR images reviewed. Delayed images for evaluation of the urinary system also acquired. All images stored on PACS. All CT scanners at this facility use dose modulation, iterative reconstruction, and/or weight based d osing when appropriate to reduce radiation dose to as low as reasonably achievable (ALARA). [facility]: Dose Right [facility]: CareDose [facility]: Dose Right [facility]: Teradose 4D [facility]: Integrated [employer] CONTRAST TYPE AND DOSE: contrast/concentration: Isovue 350.00 mg/ml; Total Contrast Delivered: 83.0 ml; Total Saline Delivered: 67.8 ml RENAL FUNCTION: Creatinine -0.65 RADIATION DOSE: CT Rad equipment meets quality standard of care and radiation dose reduction techniq ues were employed. CTDIvol: 7.2 - 10.2 mGy. DLP: 1009 mGy-cm.. LIMITATIONS: None. FINDINGS: LOWER CHEST: Dependent atelectatic changes in the lower lobes, slightly more so on the le ft. LIVER: In the right hepatic lobe a 1.7 cm hypoattenuated lesion with peripheral nodular enhancement and centripetal filling in of IV contrast on the delayed imaging. This finding likely correlates to the ultrasound examination dated 06/27/2016 and represents a hemangioma. No dilated ducts. The hepa tic and portal veins are patent. SPLEEN: Splenules, normal anatomic variants. PANCREAS: No masses. No significant calcifications. No adjacent inflammation or peripancreatic fluid collections. Pancreatic duct not dilated. GALLBLADDER: Prior cholecystectomy. No identified stones by CT criteria. No inflammatory changes to suggest cholecystitis. ADRENAL GLANDS: No significant masses or asymmetry. RIGHT KIDNEY AND URETER: No solid masses. No significant calcifications. No hydronephrosis or hyd roureter. LEFT KIDNEY AND URETER: No solid masses. No significant calcifications. No hydronephrosis or hydr oureter. AORTA AND VESSELS: No aneurysm. No dissection. Renal arteries, SMA, celiac without stenosis. RETROPERITONEUM: No retroperitoneal adenopathy, hemorrhage or masses. BOWEL AND PERITONEAL CAVITY: No masses or inflammatory changes. No free fluid or peritoneal masses. APPENDIX: Normal. PELVIS: A 2.1 cm hypoattenuated structure in the right adnexal region with enhancing wall, may repre sent a corpus luteal cyst. No free fluid. Normal bladder. ABDOMINAL WALL: Small fat containing umbilical hernia. BONES: Mild levoconvex scoliosis lumbar spine. OTHER: No other significant finding. IMPRESSION: 1. A hypoattenuated right hepatic lobe lesion with CT characteristics suggesting a maximo ngioma. This finding likely correlates with the abdominal ultrasound examination dated 06/27/2016. 2. A well-circumscribed hypoattenuated structure in the right adnexal region may represent corpus zenaida teal cyst. 3. Prior cholecystectomy. 4. Dependent atelectatic changes in the lower lobes, more so on the left, may be on the basis of atel ectasis. Correlation with history suggested. 5. Additional findings as above. TECHNICAL DOCUMENTATION: JOB ID: [id number] Quality ID # [id number]: Final reports with documentation of one or more dose reduction techniques (e.g., Au tomated exposure control, adjustment of the mA and/or kV according to patient size, use of iterative reconstruction technique) 2010 [employer]- All Rights Reserved Reading location - IP/workstation name: [email or web address]
[2018-12-07] MEDS: MAGNESIUM SULFATE/D5W 1 GM/100 ML RTUPB IV SCH ×2 (18:30→19:03)
[2018-12-07 20:15] VITALS: BP 105/61
== END 2018-12-07 20:24 | disposition home or self-care (01) ==
LOC: ER 12:48
DX: R10.33 Periumbilical pain (principal); E86.0 Dehydration; K76.9 Liver disease, unspecified; R19.7 Diarrhea, unspecified; N81.10 Cystocele, unspecified; N81.6 Rectocele; F41.9 Anxiety disorder, unspecified; R11.2 Nausea with vomiting, unspecified; J98.11 Atelectasis; F17.200 Nicotine dependence, unspecified, uncomplicated; I49.3 Ventricular premature depolarization; R10.813 Right lower quadrant abdominal tenderness; F32.9 Major depressive disorder, single episode, unspecified; Z79.899 Other long term (current) drug therapy; Z88.7 Allergy status to serum and vaccine; Z90.49 Acquired absence of other specified parts of digestive tract
CPT/HCPCS: 99284; 96361; 96375; 96365; 96366; 96367; 36415; 82553; 82550; 83690; 83735; 84703; 85025; 80053; 81001; 74177; J3010; J3475; J2405; J3480; J7030

== ENCOUNTER 2018-12-08 19:13 | Emergency (ER) | payer OTHER ==
[2018-12-08 20:18] VITALS: BP 124/97
[2018-12-08] MEDS ORDERED: OXYCODONE-ACETAMINOPHEN 5-325 MG TABLET PO ONE (21:10)
--- NOTE | 2018-12-08 21:15 | ER Document Report ---
ED Medical Screen (RME) - General Chief Complaint: Abdominal Pain Stated Complaint: ABDOMINAL PAIN Time Seen by Provider: 12/08/18 20:59 Notes: Patient is a 28-year-old female who presents to the emergency department via EMS. Patient was seen in this emergency department yesterday and diagnosed with ovarian cyst. She reports continuation of pain that starts in the lower abdomen which radiates to the upper abdomen. She reports that her pain was so bad earlier she was doubled over in pain and became incontinent of her stool. Diarrhea has been persistent since Friday states that she even had diarrhea in her sleep. TRAVEL OUTSIDE OF THE [place] IN LAST 30 DAYS: No - Related Data Allergies/Adverse Reactions: Tuberculin,Ppd,Multi-Puncture [From Tuberculin PPD Jen Test] Allergy (Severe, Verified 12/07/18 13:00) Anaphylaxis tramadol Adverse Reaction (Verified 12/07/18 13:00) VOMITING Past Medical History - Social History Frequency of alcohol use: None Drug Abuse: None - Past Medical History Cardiac Medical History: Denies: Hx Coronary Artery Disease, Hx Heart Attack, Hx Hypertension Pulmonary Medical History: Reports: Hx Asthma - as a child and teenager Denies: Hx Bronchitis, Hx COPD, Hx Pneumonia Neurological Medical History: Denies: Hx Cerebrovascular Accident, Hx Seizures Renal/ Medical History: Denies: Hx Peritoneal Dialysis Musculoskeltal Medical History: Denies Hx Arthritis Past Surgical History: Reports: Hx Cholecystectomy, Hx Gynecologic Surgery - r/o endometriosis - Immunizations Hx Diphtheria, Pertussis, Tetanus Vaccination: Yes Physical Exam - Vital signs Vitals: Temp Pulse Resp BP Pulse Ox 98.4 F 93 18 124/97 H 99 12/08/18 20:16 12/08/18 20:16 12/08/18 20:16 12/08/18 20:16 12/08/18 20:16 - Abdominal Inspection: Normal Distension: No distension Bowel sounds: Hyperactive Tenderness: Tender - Tender upon palpation throughout abdomen Organomegaly: No organomegaly Course - Re-evaluation Re-evalutation: 12/08/18 21:14 I have greeted and performed a rapid initial assessment of this patient. A comprehensive ED assessment and evaluation of the patient, analysis of test results and completion of the medical decision making process will be conducted by additional ED providers. - Vital Signs Vital signs: Temp Pulse Resp BP Pulse Ox 98.4 F 93 18 124/97 H 99 12/08/18 20:16 12/08/18 20:16 12/08/18 20:16 12/08/18 20:16 12/08/18 20:16
[2018-12-08 22:01] LABS: ABSOLUTE EOSINOPHILS # (AUTO) 0.2 10^3/uL (0.0-0.6); ABSOLUTE LYMPHOCYTES (AUTO) 1.2 10^3/uL (0.5-4.7); ABSOLUTE MONOCYTES (AUTO) 0.4 10^3/uL (0.1-1.4); ABSOLUTE NEUT (AUTO) 6.6 10^3/uL (1.7-8.2); BASOPHILS % (AUTO) 0.2 % (0-2); EOSINOPHILS % (AUTO) 2.4 % (0-6); HEMATOCRIT 39.1 % (36.0-47.0); HEMOGLOBIN 13.4 g/dL (12.0-15.5); MEAN CORPUSCULAR HEMOGLOBIN 30.6 pg (27.0-33.4); MEAN CORPUSCULAR HGB CONC 34.1 g/dL (32.0-36.0); MEAN CORPUSCULAR VOLUME 90 fl (80-97); MONOCYTES % (AUTO) 4.6 % (3-13); PLATELET COUNT 145 10^3/uL (150-450); RED BLOOD COUNT 4.36 10^6/uL (3.72-5.28); SEGMENTED NEUTROPHILS % (AUTO) 78.8 % (42-78); TOTAL CELLS COUNTED % (AUTO) 100 %; WHITE BLOOD COUNT 8.3 10^3/uL (4.0-10.5)
[2018-12-08 22:13] LABS: ALANINE AMINOTRANSFERASE 39 U/L (9-52); ALBUMIN 3.9 g/dL (3.5-5.0); ALKALINE PHOSPHATASE 77 U/L (38-126); ANION GAP 8 (5-19); ASPARTATE AMINO TRANSFERASE 27 U/L (14-36); BILIRUBIN,DIRECT 0.3 mg/dL (0.0-0.4); BILIRUBIN,TOTAL 0.3 mg/dL (0.2-1.3); BLOOD UREA NITROGEN 5 mg/dL (7-20); CALCIUM 8.7 mg/dL (8.4-10.2); CARBON DIOXIDE 21 mmol/L (22-30); CHLORIDE 111 mmol/L (98-107); GLUCOSE 95 mg/dL (75-110); LIPASE 114.6 U/L (23-300); POTASSIUM 3.6 mmol/L (3.6-5.0); TOTAL PROTEIN 6.8 g/dL (6.3-8.2)
--- NOTE | 2018-12-08 22:47 | RADIOLOGY REPORT (SQ) ---
EXAM DESCRIPTION: US TRANSVAGINAL COMPLETED DATE/TME: 12/08/2018 21:08 CLINICAL HISTORY: 28 years, Female, PELVIC PAIN COMPARISON: None. TECHNIQUE: Transvaginal ultrasound of the pelvis was performed. LMP is 11/13/2018 LIMITATIONS: None. FINDINGS: Uterus measures 7.6 x 3.8 x 4.7 cm in size. Cervix is closed, measuring 2.5 cm in length. Endometrial stripe thickness measures 1.1 cm. This is within normal limits for a premenopausal female. Right ovary measures 2.7 x 1.8 x 2.5 cm in size. It contains a 1.1 x 1.0 x 1.0 cm hypoechoic lesion about its periphery with superimposed peripheral hypervascularity, likely a corpus luteal cyst. Otherwise, the right ovary demonstrates normal low resistance arterial waveforms as well as venous flow. Left ovary measures 2.4 x 1.3 x 1.6 cm in size. It demonstrates normal echogenicity as well as normal low resistance arterial waveforms and venous flow. No significant free fluid is identified within the pelvis. IMPRESSION: No acute sonographic abnormality within the pelvis. 1.1 cm corpus luteum ovarian cyst. No follow-up imaging is recommended. Reference: Radiology 2010 May;256(3):943-54 copyright 2010 [employer]- All Rights Reserved
== END 2018-12-09 00:55 | disposition left against medical advice (07) ==
LOC: ER 19:13
DX: R10.9 Unspecified abdominal pain (principal); Z88.6 Allergy status to analgesic agent; Z90.49 Acquired absence of other specified parts of digestive tract
CPT/HCPCS: 36415; 76830; 80053; 83690; 85025; 93976; 99281

== ENCOUNTER 2019-02-08 21:22 | Emergency (ER) | payer OTHER ==
--- NOTE | 2019-02-08 22:19 | ER Document Report ---
ED General - General Chief Complaint: Post Surgical Pain Stated Complaint: POST HYSTEROCTOMY PAIN, DISCHARGE Time Seen by Provider: 02/08/19 22:18 Notes: Patient is a pleasant 28-year-old female who is proximately 2 weeks postop from hysterectomy as well as repair of her bladder and rectal prolapse. Patient says that she was started having some pain on Friday. She called the doctor's office and he said that they would call her on Friday to try to arrange appointment but she never heard back. She went to [facility] at that time but she waited in ER long time was unable unable to get back and therefore she went home. Today she started having continued pain and also noticed some vaginal bleeding. She denies any fevers. Some nausea. No diarrhea. No dysuria. She also started to notice sided chest pain that was nonradiating. Pain is worse when she takes a deep breath. TRAVEL OUTSIDE OF THE [place] IN LAST 30 DAYS: No - Related Data Allergies/Adverse Reactions: Tuberculin,Ppd,Multi-Puncture [From Tuberculin PPD Jen Test] Allergy (Severe, Verified 12/07/18 13:00) Anaphylaxis tramadol Adverse Reaction (Verified 12/07/18 13:00) VOMITING Past Medical History - Social History Smoking Status: Unknown if Ever Smoked Frequency of alcohol use: None Drug Abuse: None Family History: Reviewed & Not Pertinent - Past Medical History Cardiac Medical History: Denies: Hx Coronary Artery Disease, Hx Heart Attack, Hx Hypertension Pulmonary Medical History: Reports: Hx Asthma - as a child and teenager Denies: Hx Bronchitis, Hx COPD, Hx Pneumonia Neurological Medical History: Denies: Hx Cerebrovascular Accident, Hx Seizures Renal/ Medical History: Denies: Hx Peritoneal Dialysis Musculoskeletal Medical History: Denies Hx Arthritis Past Surgical History: Reports: Hx Cholecystectomy, Hx Gynecologic Surgery - r/o endometriosis - Immunizations Hx Diphtheria, Pertussis, Tetanus Vaccination: Yes Review of Systems - Review of Systems Notes: My Normal Review Basic REVIEW OF SYSTEMS: CONSTITUTIONAL : Denies fever, chills, or sweats. Denies recent illness. CARDIOVASCULAR: Pleuritic chest pain RESPIRATORY: Denies cough, cold, or chest congestion. Denies shortness of breath, difficulty breathing, or wheezing. GASTROINTESTINAL: Lower abdominal pain. Denies nausea, vomiting, or diarrhea. GENITOURINARY: Denies difficulty urinating, painful urination, burning, frequency, or blood in urine. FEMALE GENITOURINARY: Denies vaginal bleeding, abnormal or irregular periods. LMP: Recent hysterectomy MUSCULOSKELETAL: Denies neck or back pain or joint pain or swelling. SKIN: Denies rash or skin lesions. NEUROLOGICAL: Denies altered mental status or loss of consciousness. Denies headache. Denies weakness or paralysis or loss of use of either side. Denies problems with gait or speech. Denies sensory or motor loss. ALL OTHER SYSTEMS REVIEWED AND NEGATIVE. Physical Exam - Vital signs Vitals: Temp Pulse Resp BP Pulse Ox 98.3 F 70 16 128/79 H 97 02/08/19 21:50 02/08/19 21:50 02/08/19 21:50 02/08/19 21:50 02/08/19 21:50 - Notes Notes: General Appearance: Well nourished, alert, cooperative, no acute distress, moderate obvious discomfort. Vitals: reviewed, See vital signs table. Head: no swelling or tenderness to the head Eyes: PERRL, EOMI, Conjuctiva clear Neck: Supple, no neck tenderness, No thyromegaly Lungs: No wheezing, No rales, No rhonci, No accessory muscle use, good air exchange bilaterally. Heart: Normal rate, Regular rythm, No murmur, no rub Abdomen: Normal BS, soft, No rigidity, some moderate suprapubic and lower abdominal tenderness to palpation. Pelvic exam: Normal external genitalia. Speculum exam revealed no abnormal discharge. No bleeding. Female nurse senior mainframe programmer analyst was Nafisa. Extremities: good pulses in all extremities, no swelling or tenderness in the extremities, no edema. Skin: warm, dry, appropriate color, no rash Neuro: speech clear, oriented x 3, normal affect, responds appropriately to questions. Course - Re-evaluation Re-evalutation: 02/09/19 01:11 CT scan of the chest was obtained patient was having pleuritic chest pain was 2 weeks postop. CTA Fortune was negative. Her pain is since resolved. CT scan of abdomen pelvis was negative as well. She has a normal-appearing pelvic exam with any abnormal discharge and no active bleeding. I did speak with Dr. Hanson who is student ambassador covering for Dr. Hinkle. She said that she would have Heather from the office call her this morning to give her a close follow-up appointment. Patient is agreeable with this. I encourage patient return to ER if she has worsening pain, fevers, difficulty breathing, or if she feels unwell. Patient agrees with plan and will be discharged home. Dictation of this chart was performed using voice recognition software; therefore, there may be some unintended grammatical errors. - Vital Signs Vital signs: Temp Pulse Resp BP Pulse Ox 98.3 F 70 19 124/77 98 02/09/19 00:54 02/08/19 21:50 02/09/19 00:54 02/09/19 00:54 02/09/19 00:54 - Laboratory Result Diagrams: 02/08/19 22:48 02/08/19 22:48 Laboratory results interpreted by me: 02/08/19 02/08/19 22:48 22:48 RDW 14.4 H Chloride 108 H - EKG Interpretation by Me Additional EKG results interpreted by me: 02/08/19 22:18 EKG is reviewed and interpreted by me. EKG shows sinus rhythm with a rate of 83 bpm. She does have trigeminy. NV interval, QRS duration, QT intervals are within normal range. Old EKG for comparison is from July 12, 2018. Discharge - Discharge Clinical Impression: Post-op pain Chest pain Qualifiers: Chest pain type: unspecified Qualified Code(s): R07.9 - Chest pain, unspecified Condition: Good Disposition: HOME, SELF-CARE Additional Instructions: Your CT scan today did not show any concerning findings. Your laboratory evaluation is unremarkable. I did speak with Dr. Hanson who is the student ambassador covering for Dr. Hinkle. She says that she will have Heather from the office call you today to set up a close follow-up appointment. Please rest over the next 24 hours. No sexual activity until cleared by student ambassador. Please return to ER immediately if you have sudden worsening pain, difficulty breathing, fevers, or feel unwell.
[2019-02-08] MEDS ORDERED: MORPHINE SULFATE 10 MG/ML INJ IV ONE (22:27)
[2019-02-08] MEDS ORDERED: NORMAL SALINE 1000 ML 1,000 ML IV ONE (22:28)
[2019-02-08 23:04] LABS: ABSOLUTE BASOPHILS # (AUTO) 0.1 10^3/uL (0.0-0.2); ABSOLUTE EOSINOPHILS # (AUTO) 0.3 10^3/uL (0.0-0.6); ABSOLUTE LYMPHOCYTES (AUTO) 1.8 10^3/uL (0.5-4.7); ABSOLUTE MONOCYTES (AUTO) 0.4 10^3/uL (0.1-1.4); ABSOLUTE NEUT (AUTO) 4.3 10^3/uL (1.7-8.2); BASOPHILS % (AUTO) 0.8 % (0-2); EOSINOPHILS % (AUTO) 4.5 % (0-6); HEMATOCRIT 36.9 % (36.0-47.0); HEMOGLOBIN 12.6 g/dL (12.0-15.5); LYMPHOCYTES % (AUTO) 26.6 % (13-45); MEAN CORPUSCULAR HEMOGLOBIN 30.4 pg (27.0-33.4); MEAN CORPUSCULAR HGB CONC 34.3 g/dL (32.0-36.0); MEAN CORPUSCULAR VOLUME 89 fl (80-97); MONOCYTES % (AUTO) 6.3 % (3-13); PLATELET COUNT 153 10^3/uL (150-450); RED BLOOD COUNT 4.16 10^6/uL (3.72-5.28); RED CELL DISTRIBUTION WIDTH 14.4 % (11.5-14.0); SEGMENTED NEUTROPHILS % (AUTO) 61.8 % (42-78); TOTAL CELLS COUNTED % (AUTO) 100 %; WHITE BLOOD COUNT 6.9 10^3/uL (4.0-10.5)
[2019-02-08 23:18] LABS: ALANINE AMINOTRANSFERASE 28 U/L (9-52); ALBUMIN 4.3 g/dL (3.5-5.0); ALKALINE PHOSPHATASE 56 U/L (38-126); ANION GAP 11 (5-19); ASPARTATE AMINO TRANSFERASE 23 U/L (14-36); BILIRUBIN,DIRECT 0.4 mg/dL (0.0-0.4); BILIRUBIN,TOTAL 0.4 mg/dL (0.2-1.3); BLOOD UREA NITROGEN 19 mg/dL (7-20); CALCIUM 10.1 mg/dL (8.4-10.2); CARBON DIOXIDE 22 mmol/L (22-30); CHLORIDE 108 mmol/L (98-107); GLUCOSE 104 mg/dL (75-110); POTASSIUM 4.2 mmol/L (3.6-5.0); TOTAL PROTEIN 7.1 g/dL (6.3-8.2)
[2019-02-08] MEDS ORDERED: HYDROMORPHONE HCL INJ/PF 2 MG/ML AMPULE IV ONE (23:54)
--- NOTE | 2019-02-09 00:34 | RADIOLOGY REPORT (SQ) ---
EXAM DESCRIPTION: CT CHEST WITH IV CONTRAST, CT ABDOMEN PELVIS WITH IV CONTRAST COMPLETED DATE/TME: 02/08/2019 22:26 (accession [id number]), 02/08/2019 22:27 (accession [id number]) CLINICAL HISTORY: 28 years, Female, pleuritic chest pain, 2 week post op COMPARISON: 12/07/2018 CT TECHNIQUE: 676 Images stored on PACS. All CT scanners at this facility use dose modulation, iterative reconstruction, and/or weight based dosing when appropriate to reduce radiation dose to as low as reasonably achievable (ALARA). [facility]: Dose Right [facility]: CareDose [facility]: Dose Right [facility]: Teradose 4D [facility]: [employer] LIMITATIONS: None. FINDINGS: CT chest: The visualized thyroid gland enhances normally. Mediastinal vasculature enhances normally. The heart and pericardium are unremarkable. Osseous structures of the thorax are grossly intact. No pneumothorax. The visualized airways are patent. The lungs are clear. CT abdomen/pelvis: Osseous structures are grossly intact. Stable hypodensity in the inferior right hepatic lobe likely reflecting hemangioma measuring 1.6 x 1.0 cm. The spleen, adrenal glands, pancreas, kidneys are unremarkable. Status post cholecystectomy. Abundant stool in the colon. No gross evidence for bowel obstruction. Normal appendix. No free air. No free fluid. IMPRESSION: Negative for acute intrathoracic process. Negative for acute intra-abdominal/pelvic process. TECHNICAL DOCUMENTATION: Quality ID # 436: Final reports with documentation of one or more dose reduction techniques (e.g., Automated exposure control, adjustment of the mA and/or kV according to patient size, use of iterative reconstruction technique) copyright 2011 [employer]- All Rights Reserved
--- NOTE | 2019-02-09 00:34 | RADIOLOGY REPORT (SQ) ---
EXAM DESCRIPTION: CT CHEST WITH IV CONTRAST, CT ABDOMEN PELVIS WITH IV CONTRAST COMPLETED DATE/TME: 02/08/2019 22:26 (accession [id number]), 02/08/2019 22:27 (accession [id number]) CLINICAL HISTORY: 28 years, Female, pleuritic chest pain, 2 week post op COMPARISON: 12/07/2018 CT TECHNIQUE: 676 Images stored on PACS. All CT scanners at this facility use dose modulation, iterative reconstruction, and/or weight based dosing when appropriate to reduce radiation dose to as low as reasonably achievable (ALARA). [facility]: Dose Right [facility]: CareDose [facility]: Dose Right [facility]: Teradose 4D [facility]: [employer] LIMITATIONS: None. FINDINGS: CT chest: The visualized thyroid gland enhances normally. Mediastinal vasculature enhances normally. The heart and pericardium are unremarkable. Osseous structures of the thorax are grossly intact. No pneumothorax. The visualized airways are patent. The lungs are clear. CT abdomen/pelvis: Osseous structures are grossly intact. Stable hypodensity in the inferior right hepatic lobe likely reflecting hemangioma measuring 1.6 x 1.0 cm. The spleen, adrenal glands, pancreas, kidneys are unremarkable. Status post cholecystectomy. Abundant stool in the colon. No gross evidence for bowel obstruction. Normal appendix. No free air. No free fluid. IMPRESSION: Negative for acute intrathoracic process. Negative for acute intra-abdominal/pelvic process. TECHNICAL DOCUMENTATION: Quality ID # 436: Final reports with documentation of one or more dose reduction techniques (e.g., Automated exposure control, adjustment of the mA and/or kV according to patient size, use of iterative reconstruction technique) copyright 2011 [employer]- All Rights Reserved
[2019-02-09 01:19] VITALS: BP 124/77
--- NOTE | 2019-02-09 07:45 | EKG REPORT ---
SEVERITY:- ABNORMAL ECG - SINUS RHYTHM VENTRICULAR TRIGEMINY : Confirmed by: Juvencio Reed MD 09-Feb-2019 07:44:35
== END 2019-02-09 01:19 | disposition home or self-care (01) ==
LOC: ER 21:22
DX: G89.18 Other acute postprocedural pain (principal); R07.9 Chest pain, unspecified; N93.9 Abnormal uterine and vaginal bleeding, unspecified; R11.0 Nausea; Z98.890 Other specified postprocedural states; J45.909 Unspecified asthma, uncomplicated
CPT/HCPCS: 93005; 99284; 96361; 96374; 96375; 36415; 85025; 80053; 84484; 71260; 74177; 93010; J2270; J1170; J7030

== ENCOUNTER 2019-03-15 19:58 | Emergency (ER) | payer OTHER ==
--- NOTE | 2019-03-15 21:50 | ER Document Report ---
ED General - General Chief Complaint: Post Surgical Pain Stated Complaint: ABDOMINAL PAIN Time Seen by Provider: 03/15/19 21:11 TRAVEL OUTSIDE OF THE [place] IN LAST 30 DAYS: No - HPI Notes: Patient is a 28-year-old female who presents to the emergency department for evaluation of lower abdominal pain. It started today. She cannot really describe it for me it seems to come and go, nothing seems to make it better. She states is worsened with movement. She describes 6 episodes of associated watery diarrhea. She was on antibiotics several weeks ago because she of a urinary tract infection. She denies any nausea or vomiting. She has had some chills. No vaginal discharge. No urinary symptoms. She does note that she had a hysterectomy, uncomplicated, 8 weeks ago. - Related Data Allergies/Adverse Reactions: Tuberculin,Ppd,Multi-Puncture [From Tuberculin PPD Jen Test] Allergy (Severe, Verified 12/07/18 13:00) Anaphylaxis morphine Allergy (Verified 03/15/19 21:41) tramadol Adverse Reaction (Verified 12/07/18 13:00) VOMITING Past Medical History - General Information source: Patient - Social History Smoking Status: Current Every Day Smoker Family History: Reviewed & Not Pertinent - Past Medical History Cardiac Medical History: Denies: Hx Coronary Artery Disease, Hx Heart Attack, Hx Hypertension Pulmonary Medical History: Reports: Hx Asthma - as a child and teenager Denies: Hx Bronchitis, Hx COPD, Hx Pneumonia Neurological Medical History: Denies: Hx Cerebrovascular Accident, Hx Seizures Renal/ Medical History: Denies: Hx Peritoneal Dialysis Musculoskeletal Medical History: Denies Hx Arthritis Psychiatric Medical History: Reports: Hx Depression Past Surgical History: Reports: Hx Cholecystectomy, Hx Gynecologic Surgery - r/o endometriosis, Hx Hysterectomy - Immunizations Hx Diphtheria, Pertussis, Tetanus Vaccination: Yes Review of Systems - Review of Systems Constitutional: See HPI EENT: No symptoms reported Cardiovascular: No symptoms reported Respiratory: No symptoms reported Gastrointestinal: See HPI Genitourinary: No symptoms reported Female Genitourinary: No symptoms reported Musculoskeletal: No symptoms reported Skin: No symptoms reported Neurological/Psychological: No symptoms reported Physical Exam - Vital signs Vitals: Temp Pulse Resp BP Pulse Ox 98.7 F 126 H 20 181/93 H 95 03/15/19 20:51 03/15/19 20:51 03/15/19 20:51 03/15/19 20:51 03/15/19 20:51 - Notes Notes: Vital signs reviewed, please refer to chart. Head is normocephalic, atraumatic. Pupils equal round, reactive to light. Neck is supple without meningismus. H eart is mildly irregular. Lungs are clear to auscultation bilaterally. Abdomen is soft, mildly tender to bilateral lower quadrants, normoactive bowel sounds throughout. Well-healing, well approximated laparoscopic surgery scars to the right abdomen. Extremities without cyanosis, clubbing. Posterior calves are nontender. Peripheral pulses are equal. Skin is warm and dry. Patient is awake, alert, neurological exam is nonfocal. Course - Re-evaluation Re-evalutation: 03/15/19 23:12 Patient presented to the emergency department for evaluation of lower abdominal pain, diarrhea. She had a hysterectomy 8 weeks ago. I do not have any suspicion that the 2 are related. She has no vaginal bleeding or discharge. She is complaining of diarrhea. She had an unconjugated course. I did order a stool for C. difficile, unfortunately the patient was unable to provide a stool sample. I will go ahead and write her an outpatient lab slip. She is to follow-up with her primary care doctor regarding this. Otherwise serial abdom inal exams remain benign. Her labs are investigations are unremarkable. We will send her home with Binh and close follow-up. She is to return to the emergency department with worsening or new concerning symptoms of any sort. - Vital Signs Vital signs: Temp Pulse Resp BP Pulse Ox 98.7 F 126 H 12 132/95 H 98 03/15/19 20:51 03/15/19 20:51 03/15/19 21:33 03/15/19 21:33 03/15/19 21:33 - Laboratory Result Diagrams: 03/15/19 21:32 03/15/19 21:32 Laboratory results interpreted by me: 03/15/19 03/15/19 21:32 21:32 RDW 14.4 H Chloride 109 H Discharge - Discharge Clinical Impression: Lower abdominal pain Diarrhea Qualifiers: Diarrhea type: presumed infectious Qualified Code(s): R19.7 - Diarrhea, u nspecified Condition: Stable Disposition: HOME, SELF-CARE Instructions: Abdominal Pain ([facility]), Diarrhea, Nonspecific ([facility]) Additional Instructions: Rest, stay well-hydrated. Submit stool sample to the lab for further testing. Follow-up with your doctor this week. Return to the emergency department with worsening or new concerning symptoms of any sort. Forms: Follow-Up Laboratory Testing
[2019-03-15 22:16] LABS: ABSOLUTE EOSINOPHILS # (AUTO) 0.2 10^3/uL (0.0-0.6); ABSOLUTE MONOCYTES (AUTO) 0.4 10^3/uL (0.1-1.4); ABSOLUTE NEUT (AUTO) 4.3 10^3/uL (1.7-8.2); BASOPHILS % (AUTO) 0.5 % (0-2); EOSINOPHILS % (AUTO) 2.5 % (0-6); HEMATOCRIT 39.6 % (36.0-47.0); HEMOGLOBIN 13.4 g/dL (12.0-15.5); LYMPHOCYTES % (AUTO) 28.3 % (13-45); MEAN CORPUSCULAR HEMOGLOBIN 30.7 pg (27.0-33.4); MEAN CORPUSCULAR HGB CONC 33.8 g/dL (32.0-36.0); MEAN CORPUSCULAR VOLUME 91 fl (80-97); MONOCYTES % (AUTO) 6.2 % (3-13); PLATELET COUNT 166 10^3/uL (150-450); RED BLOOD COUNT 4.35 10^6/uL (3.72-5.28); RED CELL DISTRIBUTION WIDTH 14.4 % (11.5-14.0); SEGMENTED NEUTROPHILS % (AUTO) 62.5 % (42-78); TOTAL CELLS COUNTED % (AUTO) 100 %; WHITE BLOOD COUNT 6.9 10^3/uL (4.0-10.5)
[2019-03-15 22:19] LABS: APPEARANCE,URINE CLEAR; BILIRUBIN,URINE NEGATIVE (NEGATIVE); COLOR,URINE YELLOW; GLUCOSE, URINE NEGATIVE (NEGATIVE); KETONES,URINE NEGATIVE (NEGATIVE); LEUKOCYTE ESTERASE,URINE NEGATIVE (NEGATIVE); NITRITE,URINE NEGATIVE (NEGATIVE); PROTEIN,URINE NEGATIVE (NEGATIVE); URINE SPECIFIC GRAVITY 1.021; UROBILINOGEN,URINE NEGATIVE mg/dL (<2.0)
[2019-03-15 22:22] LABS: INTERNATIONAL RATION (INR) 0.98
[2019-03-15 22:36] LABS: ALANINE AMINOTRANSFERASE 26 U/L (9-52); ALBUMIN 4.5 g/dL (3.5-5.0); ALKALINE PHOSPHATASE 69 U/L (38-126); ANION GAP 8 (5-19); ASPARTATE AMINO TRANSFERASE 26 U/L (14-36); BILIRUBIN,DIRECT 0.2 mg/dL (0.0-0.4); BILIRUBIN,TOTAL 0.2 mg/dL (0.2-1.3); BLOOD UREA NITROGEN 14 mg/dL (7-20); CALCIUM 9.4 mg/dL (8.4-10.2); CARBON DIOXIDE 23 mmol/L (22-30); CHLORIDE 109 mmol/L (98-107); GLUCOSE 88 mg/dL (75-110); LIPASE 127.6 U/L (23-300); POTASSIUM 3.8 mmol/L (3.6-5.0); SODIUM 140.3 mmol/L (137-145); TOTAL PROTEIN 7.6 g/dL (6.3-8.2)
[2019-03-15 22:43] LABS: VENOUS BLOOD BASE EXCESS -2.3 mmol/L; VENOUS BLOOD HCO3 21.8 mmol/L (20-32); VENOUS BLOOD PCO2 35.4 mmHg (35-63); VENOUS BLOOD PH 7.41 (7.30-7.42)
[2019-03-15] MEDS ORDERED: DICYCLOMINE HCL 20 MG TABLET PO ONE (23:16)
[2019-03-15 23:20] VITALS: BP 118/58
--- NOTE | 2019-03-16 19:13 | EKG REPORT ---
SEVERITY:- OTHERWISE NORMAL ECG - SINUS RHYTHM VENTRICULAR PREMATURE COMPLEX : Confirmed by: Juvencio Reed MD 16-Mar-2019 19:12:47
== END 2019-03-16 00:03 | disposition home or self-care (01) ==
LOC: ER 19:58
DX: R10.30 Lower abdominal pain, unspecified (principal); R19.7 Diarrhea, unspecified; Z88.6 Allergy status to analgesic agent; Z90.710 Acquired absence of both cervix and uterus
CPT/HCPCS: 93005; 99284; 36415; 87040; 87086; 83690; 83735; 85025; 85610; 87077; 80053; 81001; 82803; 83605; 93010; J3490

== ENCOUNTER 2019-03-17 14:35 | Emergency (ER) | payer OTHER ==
[2019-03-17 15:01] VITALS: BP 144/88
--- NOTE | 2019-03-17 16:23 | ER Document Report ---
ED Medical Screen (RME) - General Chief Complaint: Chest Pain Stated Complaint: CHEST PAIN Time Seen by Provider: 03/17/19 16:13 Primary Care Provider: WALESKA ACOSTA [Primary Care Provider] - Follow up as needed Mode of Arrival: Ambulatory Information source: Patient Notes: Patient is a 28-year-old female presenting to the emergency department chief complaint of chest pain that is been going on for several days. Patient reports midsternal chest pain with no radiation and no associated symptoms. She does state the chest pain is intermittent in nature. She does report she has pain to her right calf as well, states she had a hysterectomy 8 weeks ago and patient feels that she may have a blood clot in her leg. She denies any history of DVTs or PEs. Exam: Heart sounds S1-S2 present with no ectopy noted. No unilateral edema noted to lower extremities. Strong dorsalis pedis pulse to right lower extremity. I have greeted and performed a rapid initial assessment of this patient. A comprehensive ED assessment and evaluation of the patient, analysis of test results and completion of the medical decision making process will be conducted by additional ED providers. I have specifically instructed the patient or family members with the patient to immediately return to any nursing staff should anything change in the patient's condition or with their chief complaint. This medical record was dictated with voice recognizing software. There may be grammatical, syntax errors that are unintended. TRAVEL OUTSIDE OF THE [place] IN LAST 30 DAYS: No - Related Data Allergies/Adverse Reactions: Tuberculin,Ppd,Multi-Puncture [From Tuberculin PPD Jen Test] Allergy (Severe, Verified 03/17/19 14:48) Anaphylaxis morphine Allergy (Verified 03/17/19 14:48) tramadol Adverse Reaction (Verified 03/17/19 14:48) VOMITING Past Medical History - Social History Frequency of alcohol use: Occasional Drug Abuse: None - Past Medical History Cardiac Medical History: Denies: Hx Coronary Artery Disease, Hx Heart Attack, Hx Hypertension Pulmonary Medical History: Reports: Hx Asthma - as a child and teenager Denies: Hx Bronchitis, Hx COPD, Hx Pneumonia Neurological Medical History: Denies: Hx Cerebrovascular Accident, Hx Seizures Renal/ Medical History: Denies: Hx Peritoneal Dialysis Musculoskeltal Medical History: Denies Hx Arthritis Psychiatric Medical History: Reports: Hx Depression Past Surgical History: Reports: Hx Cholecystectomy, Hx Gynecologic Surgery - r/o endometriosis, Hx Hysterectomy - Immunizations Hx Diphtheria, Pertussis, Tetanus Vaccination: Yes Physical Exam - Vital signs Vitals: Temp Pulse Resp BP Pulse Ox 97.7 F 126 H 22 H 144/88 H 98 03/17/19 15:00 03/17/19 15:00 03/17/19 15:00 03/17/19 15:00 03/17/19 15:00 Course - Vital Signs Vital signs: Temp Pulse Resp BP Pulse Ox 97.7 F 126 H 22 H 144/88 H 98 03/17/19 15:00 03/17/19 15:00 03/17/19 15:00 03/17/19 15:00 03/17/19 15:00 Doctor's Discharge - Discharge Referrals: WALESKA ACOSTA [Primary Care Provider] - Follow up as needed
--- NOTE | 2019-03-17 16:50 | RADIOLOGY REPORT (SQ) ---
EXAM DESCRIPTION: CHEST SINGLE VIEW COMPLETED DATE/TIME: 03/17/2019 4:39 pm REASON FOR STUDY: chest pain COMPARISON: 07/13/2018 EXAM PARAMETERS: NUMBER OF VIEWS: One view. TECHNIQUE: Single frontal radiographic view of the chest acquired. RADIATION DOSE: NA LIMITATIONS: None. FINDINGS: LUNGS AND PLEURA: No opacities, masses or pneumothorax. No pleural effusion. MEDIASTINUM AND HILAR STRUCTURES: No masses. Contour normal. HEART AND VASCULAR STRUCTURES: Heart normal in size. Normal vasculature. BONES: No acute findings. HARDWARE: None in the chest. OTHER: No other significant finding. IMPRESSION: 1. NO ACUTE RADIOGRAPHIC FINDING IN THE CHEST. TECHNICAL DOCUMENTATION: JOB ID: [id number] [employer]- All Rights Reserved Reading location - IP/workstation name: [email or web address]
[2019-03-17 17:38] LABS: ABSOLUTE EOSINOPHILS # (AUTO) 0.2 10^3/uL (0.0-0.6); ABSOLUTE LYMPHOCYTES (AUTO) 1.6 10^3/uL (0.5-4.7); ABSOLUTE MONOCYTES (AUTO) 0.4 10^3/uL (0.1-1.4); ABSOLUTE NEUT (AUTO) 5.9 10^3/uL (1.7-8.2); BASOPHILS % (AUTO) 0.5 % (0-2); EOSINOPHILS % (AUTO) 2.2 % (0-6); HEMATOCRIT 42.3 % (36.0-47.0); HEMOGLOBIN 14.3 g/dL (12.0-15.5); LYMPHOCYTES % (AUTO) 19.6 % (13-45); MEAN CORPUSCULAR HEMOGLOBIN 30.8 pg (27.0-33.4); MEAN CORPUSCULAR HGB CONC 33.8 g/dL (32.0-36.0); MEAN CORPUSCULAR VOLUME 91 fl (80-97); MONOCYTES % (AUTO) 5.4 % (3-13); PLATELET COUNT 188 10^3/uL (150-450); RED BLOOD COUNT 4.64 10^6/uL (3.72-5.28); RED CELL DISTRIBUTION WIDTH 14.5 % (11.5-14.0); SEGMENTED NEUTROPHILS % (AUTO) 72.3 % (42-78); TOTAL CELLS COUNTED % (AUTO) 100 %; WHITE BLOOD COUNT 8.1 10^3/uL (4.0-10.5)
[2019-03-17 17:55] LABS: ALANINE AMINOTRANSFERASE 23 U/L (9-52); ALBUMIN 4.8 g/dL (3.5-5.0); ALKALINE PHOSPHATASE 69 U/L (38-126); ANION GAP 7 (5-19); ASPARTATE AMINO TRANSFERASE 23 U/L (14-36); BILIRUBIN,DIRECT 0.2 mg/dL (0.0-0.4); BILIRUBIN,TOTAL 0.2 mg/dL (0.2-1.3); BLOOD UREA NITROGEN 11 mg/dL (7-20); CALCIUM 9.8 mg/dL (8.4-10.2); CARBON DIOXIDE 22 mmol/L (22-30); CHLORIDE 111 mmol/L (98-107); GLUCOSE 100 mg/dL (75-110); POTASSIUM 4.1 mmol/L (3.6-5.0); SODIUM 140.4 mmol/L (137-145); TOTAL PROTEIN 7.8 g/dL (6.3-8.2)
--- NOTE | 2019-03-17 19:02 | EKG REPORT ---
SEVERITY:- ABNORMAL ECG - SINUS TACHYCARDIA JACQUI, CONSIDER BIATRIAL ABNORMALITIES BORDERLINE Q WAVES IN INFERIOR LEADS BORDERLINE T ABNORMALITIES, ANTERIOR LEADS, UNCHANGED FROM 2018 EKG. : Confirmed by: Juvencio Reed MD 17-Mar-2019 19:02:11
== END 2019-03-17 17:47 | disposition left against medical advice (07) ==
LOC: ER 14:35
DX: R07.9 Chest pain, unspecified (principal); Z90.49 Acquired absence of other specified parts of digestive tract
CPT/HCPCS: 36415; 71045; 80053; 84484; 85025; 93005; 93010; 99281

== ENCOUNTER 2019-03-26 20:12 | Emergency (ER) | payer OTHER ==
[2019-03-26] MEDS ORDERED: DIAZEPAM 5 MG TABLET PO ONE (21:57)
--- NOTE | 2019-03-26 22:01 | ER Document Report ---
ED General - General Chief Complaint: Leg Pain Stated Complaint: POSSIBLE BLOOD CLOT Time Seen by Provider: 03/26/19 21:49 Primary Care Provider: WALESKA ACOSTA [Primary Care Provider] - Follow up as needed SONIA CENTENO MD [ACTIVE STAFF] - Follow up in 3-5 days Mode of Arrival: Ambulatory Information source: Patient, [facility] Records Notes: 28-year-old female with depression, anxiety, endometriosis presents with right lower extremity pain that started 1 week prior to arrival. She describes it as a burning pain that is intermittent. Patient states that she has had 2 weeks of intermittent chest pain. She has been seen previously for her chest pain. Patient denies any injury to her right lower extremity. She states that she began having shortness of breath about 15 minutes prior to my exam. Patient does report previous history of DVT during . TRAVEL OUTSIDE OF THE [place] IN LAST 30 DAYS: No - HPI Onset: Last week Onset/Duration: Gradual, Persistent Quality of pain: Burning Severity: Moderate Pain Level: 2 Associated symptoms: Chest pain, Shortness of breath. denies: Nonproductive cough, Productive cough, Fever, Hurts to breath, Leg swelling, Nausea, Vomiting Exacerbated by: Walking Relieved by: Denies Similar symptoms previously: Yes Recently seen / treated by doctor: Yes - Related Data Allergies/Adverse Reactions: Tuberculin,Ppd,Multi-Puncture [From Tuberculin PPD Jen Test] Allergy (Severe, Verified 03/17/19 14:48) Anaphylaxis morphine Allergy (Verified 03/17/19 14:48) tramadol Adverse Reaction (Verified 03/17/19 14:48) VOMITING Past Medical History - General Information source: Patient, [facility] Records - Social History Smoking Status: Former Smoker Frequency of alcohol use: None Drug Abuse: None Lives with: Family Family History: Reviewed & Not Pertinent Patient has suicidal ideation: No Patient has homicidal ideation: No - Past Medical History Cardiac Medical History: Denies: Hx Coronary Artery Disease, Hx Heart Attack, Hx Hypertension Pulmonary Medical History: Reports: Hx Asthma - as a child and teenager Denies: Hx Bronchitis, Hx COPD, Hx Pneumonia Neurological Medical History: Denies: Hx Cerebrovascular Accident, Hx Seizures Renal/ Medical History: Denies: Hx Peritoneal Dialysis Musculoskeletal Medical History: Denies Hx Arthritis Psychiatric Medical History: Reports: Hx Depression Past Surgical History: Reports: Hx Cholecystectomy, Hx Gynecologic Surgery - r/o endometriosis, Hx Hysterectomy - Immunizations Hx Diphtheria, Pertussis, Tetanus Vaccination: Yes Review of Systems - Review of Systems Notes: REVIEW OF SYSTEMS: CONSTITUTIONAL : Denies fever, chills, or sweats. Denies recent illness. Denies weight loss, recent hospitalizations. EENT: Denies visual changes, eye pain. Denies sore throat, oral lesions, difficulty swallowing. CARDIOVASCULAR: + chest pain. Denies palpitations. Denies lower extremity edema. RESPIRATORY: Denies cough. + shortness of breath, denies wheezing. GASTROINTESTINAL: Denies abdominal pain or distention. Denies nausea, vomiting, or diarrhea. Denies blood in vomitus, stools, or per rectum. Denies black, tarry stools. Denies constipation. GENITOURINARY: Denies difficulty urinating, painful urination, frequency, blood in urine, or vaginal discharge. MUSCULOSKELETAL: Denies back or neck pain or stiffness. + Right leg pain denies swelling. SKIN: Denies rash, lesions or sores. HEMATOLOGIC : Denies easy bruising or bleeding. LYMPHATIC: Denies swollen glands. NEUROLOGICAL: Denies confusion or altered mental status. Denies loss of consciousness. Denies dizziness or lightheadedness. Denies headache. Denies weakness or paralysis. Denies problems difficulty with ambulation, slurred speech. Denies sensory loss, numbness, or tingling. Denies seizures. PSYCHIATRIC: +anxiety or stress. Denies depression, suicidal ideation, or homicidal ideation. Denies visual or auditory hallucinations. Physical Exam - Vital signs Vitals: Temp Pulse Resp BP Pulse Ox 98.2 F 69 18 155/97 H 98 03/26/19 20:37 03/26/19 20:37 03/26/19 20:37 03/26/19 20:37 03/26/19 20:37 - Notes Notes: PHYSICAL EXAMINATION: GENERAL: Tearful, anxious, tremulous HEAD: Atraumatic, normocephalic. EYES: Pupils equal round and reactive to light, extraocular movements intact, conjunctiva are normal. ENT: Nares patent, oropharynx clear without exudates. Moist mucous membranes. NECK: Normal range of motion, supple without lymphadenopathy LUNGS: Breath sounds clear to auscultation bilaterally and equal. No wheezes rales or rhonchi. HEART: Regular rate and rhythm without murmurs ABDOMEN: Soft, nontender, nondistended abdomen. No guarding, no rebound. No masses appreciated. Female : deferred Musculoskeletal: Normal range of motion, no pitting or edema. No cyanosis. Right lower extremity-no swelling, erythema, pain with palpation, obvious deformity. DP, PT pulse intact. NEUROLOGICAL: Cranial nerves grossly intact. Normal speech, normal gait. Normal sensory, motor exams PSYCH: Anxious, tearful. Denies suicidal ideation, homicidal ideation. SKIN: Warm, Dry, normal turgor, no rashes or lesions noted. Course - Re-evaluation Re-evalutation: Temp Pulse Resp BP Pulse Ox 98.2 F 69 18 155/97 H 98 03/26/19 20:37 03/26/19 20:37 03/26/19 20:37 03/26/19 20:37 03/26/19 20:37 Laboratory 03/26/19 03/26/19 03/26/19 22:30 22:30 22:30 WBC 8.2 RBC 4.47 Hgb 13.7 Hct 40.2 MCV 90 MCH 30.6 MCHC 34.0 RDW 14.1 H Plt Count 156 Seg Neutrophils % 65.4 Lymphocytes % 25.8 Monocytes % 6.6 Eosinophils % 1.9 Basophils % 0.3 Absolute Neutrophils 5.3 Absolute Lymphocytes 2.1 Absolute Monocytes 0.5 Absolute Eosinophils 0.2 Absolute Basophils 0.0 PT 13.0 INR 0.99 APTT 32.3 D-Dimer 0.30 Sodium 138.5 Potassium 3.5 L Chloride 104 Carbon Dioxide 23 Anion Gap 12 BUN 17 Creatinine 0.70 Est GFR ( Amer) > 60 Est GFR (Non-Af Amer) > 60 Glucose 91 Calcium 10.0 Total Bilirubin 0.4 Direct Bilirubin 0.2 Neonat Total Bilirubin Not Reportable Neonat Direct Bilirubin Not Reportable Neonat Indirect Bili Not Reportable AST 23 ALT 37 Alkaline Phosphatase 82 Creatine Kinase 57 CK-MB (CK-2) Troponin I Total Protein 7.7 Albumin 4.8 03/26/19 22:30 WBC RBC Hgb Hct MCV MCH MCHC RDW Plt Count Seg Neutrophils % Lymphocytes % Monocytes % Eosinophils % Basophils % Absolute Neutrophils Absolute Lymphocytes Absolute Monocytes Absolute Eosinophils Absolute Basophils PT INR APTT D-Dimer Sodium Potassium Chloride Carbon Dioxide Anion Gap BUN Creatinine Est GFR ( Amer) Est GFR (Non-Af Amer) Glucose Calcium Total Bilirubin Direct Bilirubin Neonat Total Bilirubin Neonat Direct Bilirubin Neonat Indirect Bili AST ALT Alkaline Phosphatase Creatine Kinase CK-MB (CK-2) < 0.22 Troponin I < 0.012 Total Protein Albumin Venous Doppler Study 03/26/19 21:34 IMPRESSION: Negative exam copyright 2010 [employer]- All Rights Reserved Tibia/Fibula X-Ray 03/26/19 22:12 IMPRESSION: No acute abnormality. Temp Pulse Resp BP Pulse Ox 98.2 F 69 21 H 124/89 H 98 03/26/19 20:37 03/26/19 20:37 03/27/19 00:03 03/27/19 00:03 03/27/19 00:03 03/26/19 22:12 Venous Doppler negative for DVT. 03/27/19 00:20 28-year-old female presents with right lower extremity pain, chest pain. Patient states her right leg is been hurting her for 1 week. Patient reports previous history of DVT with . She is not currently on any anticoagulation. Patient is very tearful, anxious upon exam. When asked was going on she states that she has had increased stress recently. CBC, CMP, cardiac enzymes, d-dimer are unremarkable. Venous Doppler is negative for DVT. X-ray of the lower extremities shows no acute abnormality. EKG was obtained wh ich shows sinus rhythm with intermittent PVCs. Patient did have a cardiac work- up in the emergency department on March 17, 2019 where she also had a negative work-up. 03/27/19 00:22 Presentation of chest pain in an otherwise well appearing patient. Low clinical suspicion for ACS given clinical history, exam, EKG without ST elevations or depressions, and negative initial troponin. HEART score less than or equal to 3. PE also seems unlikely given clinical history, absence of tachycardia or dyspnea . Patient is dimer negative . CXR without evidence of pneumothorax or pneumonia. No widened mediastinum. Aortic dissection also seems unlikely given history, symmetric pulses, CXR, and vitals. HEART Score: History-0 ECG-0 Age-0 Risk Factors-0 Troponin-0 Total: 0 Chest pain in a patient without evidence of cardiac or other serious etiology on workup today. I discussed with patient that, based on their age, risk factors and emergency department testing today, the likelihood that their symptoms are related to a heart attack is very low (estimated risk of heart attack or over the next 30 days of less than 1%). The patient demonstrates decision making capacity and has verbalized an understanding of these risks to me. Based on this, the patient has chosen to follow-up as an outpatient. Usual chest pain return precautions reviewed. The patient states understanding and agreement with this plan. 03/27/19 00:26 On reevaluation patient is resting comfortably. She is requesting discharge home. Patient be discharged home with recommendation to follow-up with cardiology. Patient was evaluated and treated as appropriate for the patient's presenting symptoms and complaint, with consideration of any critical or life threatening conditions that may be associated with their obtained history and exam as noted above. All results were discussed with patient. Patient provided the opportunity to ask questions, and express concerns. Patient was educated on treatments based on their presumed diagnosis as noted above. At this time we will discharge the patient with return precautions and follow-up recommendations. Verbal discharge instructions given a the bedside. Medication warnings reviewed. Patient is in agreement with this plan and has verbalized understanding of return precautions. After careful consideration I feel that that patient can be safely discharged from the emergency department, they were advised to followup with a primary care physician in 2-3 days. Dictation on this chart was performed using voice recognition software and may result in unintended grammatical, spelling, syntax or errors. 03/27/19 00:29 - Vital Signs Vital signs: Temp Pulse Resp BP Pulse Ox 98.2 F 69 21 H 124/89 H 98 03/26/19 20:37 03/26/19 20:37 03/27/19 00:03 03/27/19 00:03 03/27/19 00:03 - Laboratory Result Diagrams: 03/26/19 22:30 03/26/19 22:30 Laboratory results interpreted by me: 03/26/19 03/26/19 22:30 22:30 RDW 14.1 H Potassium 3.5 L - Diagnostic Test Radiology reviewed: Image reviewed, Reports reviewed - EKG Interpretation by Me EKG shows normal: Sinus rhythm Rate: Normal Rhythm: PVC's When compared to previous EKG there are: Changes noted Discharge - Discharge Clinical Impression: Right leg pain, Anxiety Chest pain Qualifiers: Chest pain type: unspecified Qualified Code(s): R07.9 - Chest pain, unspecified Condition: Good Disposition: HOME, SELF-CARE Instructions: Anxiety ([facility]), Chest Pain of Unclear Cause ([facility]), Leg Pain Nonspecific ([facility]) Additional Instructions: You were seen today for chest pain. The exact cause of your pain is unclear. However, based on your cardiac enzyme testing, chest x-ray, and EKG it does not appear that it is from an immediately life-threatening cause at this time. Although your testing here is normal is critical that you follow-up with your primary care physician for continued evaluation of this chest pain and possible stress testing. I recommended you see your physician within the next 24-48 hours to be evaluated for consideration of a stress test. Please return to emergency department immediately if you have worsening of your chest pain, short ness of breath, vomiting, become unable to exert yourself due to pain or difficulty breathing, you pass out, or have any pain that radiates into your arms, jaw, or back. Please also return if you have any additional symptoms that are concerning to you. Forms: Elevated Blood Pressure Referrals: WALESKA ACOSTA [Primary Care Provider] - Follow up as needed SONIA CENTENO MD [ACTIVE STAFF] - Follow up in 3-5 days
[2019-03-26] MEDS ORDERED: ASPIRIN 81 MG TABLET, CHEWABLE PO ONE (22:22)
[2019-03-26] MEDS ORDERED: DIAZEPAM INJ 10 MG/2 ML DISP.SYRIN IV ONE (22:23)
--- NOTE | 2019-03-26 22:39 | RADIOLOGY REPORT (SQ) ---
EXAM DESCRIPTION: US EXTREMITY VEINS UNILATERAL COMPLETED DATE/TME: 03/26/2019 21:34 CLINICAL HISTORY: 28 years, Female, pain rle COMPARISON: None. TECHNIQUE: Transverse longitudinal sonographic images of the right lower extremity deep venous system LIMITATIONS: None. FINDINGS: No visible areas of thrombus. Normal compression and augmentation throughout. Doppler images are unremarkable IMPRESSION: Negative exam copyright 2010 [employer]- All Rights Reserved
[2019-03-26 23:02] LABS: ABSOLUTE EOSINOPHILS # (AUTO) 0.2 10^3/uL (0.0-0.6); ABSOLUTE LYMPHOCYTES (AUTO) 2.1 10^3/uL (0.5-4.7); ABSOLUTE MONOCYTES (AUTO) 0.5 10^3/uL (0.1-1.4); ABSOLUTE NEUT (AUTO) 5.3 10^3/uL (1.7-8.2); BASOPHILS % (AUTO) 0.3 % (0-2); EOSINOPHILS % (AUTO) 1.9 % (0-6); HEMATOCRIT 40.2 % (36.0-47.0); HEMOGLOBIN 13.7 g/dL (12.0-15.5); LYMPHOCYTES % (AUTO) 25.8 % (13-45); MEAN CORPUSCULAR HEMOGLOBIN 30.6 pg (27.0-33.4); MEAN CORPUSCULAR VOLUME 90 fl (80-97); MONOCYTES % (AUTO) 6.6 % (3-13); PLATELET COUNT 156 10^3/uL (150-450); RED BLOOD COUNT 4.47 10^6/uL (3.72-5.28); RED CELL DISTRIBUTION WIDTH 14.1 % (11.5-14.0); SEGMENTED NEUTROPHILS % (AUTO) 65.4 % (42-78); TOTAL CELLS COUNTED % (AUTO) 100 %; WHITE BLOOD COUNT 8.2 10^3/uL (4.0-10.5)
[2019-03-26 23:10] LABS: INTERNATIONAL RATION (INR) 0.99
[2019-03-26 23:11] LABS: PARTIAL THROMBOPLASTIN TIME 32.3 SEC (23.5-35.8)
--- NOTE | 2019-03-26 23:12 | EKG REPORT ---
SEVERITY:- ABNORMAL ECG - SINUS RHYTHM MULTIPLE VENTRICULAR PREMATURE COMPLEXES INFERIOR Q WAVES, PROBABLY NORMAL VARIATION : Confirmed by: Jeremias Jasmine 26-Mar-2019 23:12:04
[2019-03-26 23:33] LABS: ALANINE AMINOTRANSFERASE 37 U/L (9-52); ALBUMIN 4.8 g/dL (3.5-5.0); ALKALINE PHOSPHATASE 82 U/L (38-126); ANION GAP 12 (5-19); ASPARTATE AMINO TRANSFERASE 23 U/L (14-36); BILIRUBIN,DIRECT 0.2 mg/dL (0.0-0.4); BILIRUBIN,TOTAL 0.4 mg/dL (0.2-1.3); BLOOD UREA NITROGEN 17 mg/dL (7-20); CARBON DIOXIDE 23 mmol/L (22-30); CHLORIDE 104 mmol/L (98-107); CREATINE KINASE 57 U/L (30-135); GLUCOSE 91 mg/dL (75-110); POTASSIUM 3.5 mmol/L (3.6-5.0); TOTAL PROTEIN 7.7 g/dL (6.3-8.2)
[2019-03-26 23:48] LABS: CREATINE KINASE MB < 0.22 ng/mL (<4.55); TROPONIN I < 0.012 ng/mL
--- NOTE | 2019-03-27 00:19 | RADIOLOGY REPORT (SQ) ---
EXAM DESCRIPTION: XR TIBIA FIBULA 2 VIEWS COMPLETED DATE/TME: 03/26/2019 22:12 CLINICAL HISTORY: 28 years, Female, pain COMPARISON: None. FINDINGS: No fracture or dislocation. Soft tissues are unremarkable. IMPRESSION: No acute abnormality.
--- NOTE | 2019-03-27 00:38 | RADIOLOGY REPORT (SQ) ---
EXAM DESCRIPTION: X-ray two view chest. CLINICAL HISTORY: 28 years Female, chest pain COMPARISON: 03/17/2019 TECHNIQUE: PA and Lateral views of the chest performed on 03/27/2019 at 12:31 AM FINDINGS: The lungs are well expanded and are clear. The costophrenic sulci are clear. There is no evidence of a pneumothorax. The cardiac silhouette is normal in size. The mediastinal contours are normal. No acute osseous abnormalities are identified. No focal soft tissue abnormalities are identified. There are surgical clips in the right upper quadrant. IMPRESSION: No evidence of acute intrathoracic disease.
[2019-03-27 01:24] VITALS: BP 102/61
== END 2019-03-27 01:56 | disposition home or self-care (01) ==
LOC: ER 20:12
DX: R07.9 Chest pain, unspecified (principal); M79.604 Pain in right leg; F41.9 Anxiety disorder, unspecified; R06.02 Shortness of breath
CPT/HCPCS: 93005; 99284; 96374; 36415; 82553; 82550; 85025; 85610; 85730; 80053; 84484; 85379; 93971; 71046; 73590; 93010; J3360

== ENCOUNTER 2019-05-07 22:27 | Emergency (ER) | payer OTHER ==
--- NOTE | 2019-05-07 23:13 | ER Document Report ---
ED GI Bleed / Rectal Pain - General Chief Complaint: rectum prolapse Stated Complaint: CONSITPATION Primary Care Provider: WALESKA ACOSTA [NO LOCAL MD] - Follow up as needed Mode of Arrival: Ambulatory Information source: Patient TRAVEL OUTSIDE OF THE [place] IN LAST 30 DAYS: No - HPI Patient complains to provider of: Hemorrhoids, Rectal pain, Other - constipation despite enemas, laxatives.. No: Bright red bld from rect., Coffee ground emesis, Dark red bld from rectum, Dark/tarry stools, Vomiting blood Onset: Last week Timing/Duration: Constant Quality of pain: Achy, Throbbing Emesis description: No: Blood tinged, Bright red blood, Brown, Clear, Coffee grounds, Green, Undigested food, Yellow, Other Dark Stools: No: Maroon, Black, Tarry Rectal foreign body: No Rectal pain with intercourse: No Associated symptoms: Constipation. denies: None, Back pain, Abdominal pain, Bruising/bleeding gums, Chest pain, Fainting/dizzy/lightheade, Hard stools, Sweaty, Other Exacerbated by: Other - defecating - Related Data Allergies/Adverse Reactions: Tuberculin,Ppd,Multi-Puncture [From Tuberculin PPD Jen Test] Allergy (Severe, Verified 03/17/19 14:48) Anaphylaxis morphine Allergy (Verified 03/17/19 14:48) tramadol Adverse Reaction (Verified 03/17/19 14:48) VOMITING Past Medical History - Social History Smoking Status: Unknown if Ever Smoked Family History: Reviewed & Not Pertinent - Past Medical History Cardiac Medical History: Denies: Hx Coronary Artery Disease, Hx Heart Attack, Hx Hypertension Pulmonary Medical History: Reports: Hx Asthma - as a child and teenager Denies: Hx Bronchitis, Hx COPD, Hx Pneumonia Neurological Medical History: Denies: Hx Cerebrovascular Accident, Hx Seizures Renal/ Medical History: Denies: Hx Peritoneal Dialysis Musculoskeletal Medical History: Denies Hx Arthritis Psychiatric Medical History: Reports: Hx Depression Past Surgical History: Reports: Hx Cholecystectomy, Hx Gynecologic Surgery - r/o endometriosis, Hx Hysterectomy - Immunizations Hx Diphtheria, Pertussis, Tetanus Vaccination: Yes Review of Systems - Review of Systems Constitutional: No symptoms reported Respiratory: No symptoms reported Gastrointestinal: Abdominal pain, Constipation. denies: No symptoms reported, See HPI, Abdomen distended, Diarrhea, Nausea, Vomiting, Blood streaked bowels, Poor appetite, Poor fluid intake, Blood in vomit, Black stools, Rectal bleeding, Last bowel movement, Fecal incontinence, Other Genitourinary: denies: No symptoms reported, See HPI, Burning, Dysuria, Discharge, Frequency, Flank pain, Hematuria, Incontinence, Pain, Urgency, Retention, Other -: Yes All other systems reviewed and negative Physical Exam - Vital signs Vitals: Temp Pulse Resp BP Pulse Ox 98.6 F 68 16 127/72 H 100 05/07/19 22:38 05/07/19 22:38 05/07/19 22:38 05/07/19 22:38 05/07/19 22:38 Notes: PHYSICAL EXAMINATION: GENERAL: Well-appearing, well-nourished and in no acute distress. HEAD: Atraumatic, normocephalic. EYES: Pupils equal round and reactive to light, extraocular movements intact, sclera anicteric, conjunctiva are normal. ENT: nares patent, oropharynx clear without exudates. Moist mucous membranes. NECK: Normal range of motion, supple without lymphadenopathy LUNGS: Breath sounds clear to auscultation bilaterally and equal. No wheezes rales or rhonchi. HEART: Regular rate and rhythm without murmurs ABDOMEN: Soft, nontender, normoactive bowel sounds. No guarding, no rebound. No masses appreciated. 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 EXTREMITIES: Normal range of motion, no pitting or edema. No cyanosis. NEUROLOGICAL: No focal neurological deficits. Moves all extremities spontaneously and on command. PSYCH: Normal mood, normal affect. SKIN: Warm, Dry, normal turgor, no rashes or lesions noted. Course - Vital Signs Vital signs: Temp Pulse Resp BP Pulse Ox 98.6 F 68 16 127/72 H 100 05/07/19 22:38 05/07/19 22:38 05/07/19 22:38 05/07/19 22:38 05/07/19 22:38 - Transfer of Care Notes: 05/08/19 01:02 Note after patient had a soapsuds enema, she had a large bowel movement and feels much better. She will be sent home with lactulose and Colace. I will also send her home with Anusol HC suppositories for hemorrhoids. Return if she is any worse Discharge - Discharge Clinical Impression: Constipation Condition: Good Disposition: HOME, SELF-CARE Instructions: Constipation ([facility]), Laxative ([facility]) Additional Instructions: Increase fluid in your diet turn if worse Prescriptions: Hydrocortisone Acetate [Anusol Hc 25 mg Supp.rect] [address] BID #14 supp.rect Docusate Sodium [Colace] 100 mg PO BID #20 capsule Lactulose [Enulose] 10 gm PO DAILY PRN #300 ml PRN Reason: Abdominal Cramping Referrals: WALESKA ACOSTA [NO LOCAL MD] - Follow up as needed
--- NOTE | 2019-05-07 23:55 | RADIOLOGY REPORT (SQ) ---
Acute abdominal series on 05/07/2019 at 11:38 PM CLINICAL INDICATION: Small bowel obstruction COMPARISON: Chest x-ray from 03/27/2019 FINDINGS: CHEST: The lungs are clear. Cardiac, hilar and mediastinal contours are within normal limits. Pulmonary vascularity is within normal limits. ABDOMEN: There is no free air. Bowel gas pattern is unremarkable with no evidence of obstruction. No increased stool to suggest constipation is noted. No abnormal calcification or mass effect is noted. There is slight levoscoliosis of the lumbar spine. IMPRESSION: 1. No acute cardiopulmonary disease. 2. Nonspecific abdomen.
[2019-05-07] MEDS ORDERED: MINERAL OIL 30 ML UDCUP PR ONE (23:59)
[2019-05-08 01:18] VITALS: BP 130/68
== END 2019-05-08 01:16 | disposition home or self-care (01) ==
LOC: ER 22:27
DX: K59.00 Constipation, unspecified (principal); K62.89 Other specified diseases of anus and rectum; R10.9 Unspecified abdominal pain; Z90.49 Acquired absence of other specified parts of digestive tract; Z90.710 Acquired absence of both cervix and uterus; Z88.6 Allergy status to analgesic agent
CPT/HCPCS: 99283; 74022; J3490

== ENCOUNTER 2019-06-25 16:13 | Emergency (ER) | payer OTHER ==
--- NOTE | 2019-06-25 16:59 | ER Document Report ---
ED Dizziness/Weakness - General Chief Complaint: Dizziness Stated Complaint: DIZZINESS Time Seen by Provider: 06/25/19 16:52 Primary Care Provider: DAINA FROST PA-C [Primary Care Provider] - Follow up as needed Mode of Arrival: Ambulatory Information source: Patient TRAVEL OUTSIDE OF THE [place] IN LAST 30 DAYS: No - HPI Patient complains to provider of: Dizziness - Pt. with h/o anxiety with c/o dizziness and R-sided head pain for the past few days. She denies N,V, CP. Also states she has had "lesions" on her R leg that her doctor can't figure out as when they have tried to biopsy them, they were no longer there. Pt. is s/p hysterectomy - Related Data Allergies/Adverse Reactions: Tuberculin,Ppd,Multi-Puncture [From Tuberculin PPD Jen Test] Allergy (Severe, Verified 03/17/19 14:48) Anaphylaxis morphine Allergy (Verified 03/17/19 14:48) tramadol Adverse Reaction (Verified 03/17/19 14:48) VOMITING Past Medical History - General Information source: Patient - Social History Smoking Status: Unknown if Ever Smoked Family History: Reviewed & Not Pertinent - Past Medical History Cardiac Medical History: Denies: Hx Coronary Artery Disease, Hx Heart Attack, Hx Hypertension Pulmonary Medical History: Reports: Hx Asthma - as a child and teenager Denies: Hx Bronchitis, Hx COPD, Hx Pneumonia Neurological Medical History: Denies: Hx Cerebrovascular Accident, Hx Seizures Renal/ Medical History: Denies: Hx Peritoneal Dialysis Musculoskeletal Medical History: Denies Hx Arthritis Psychiatric Medical History: Reports: Hx Depression Past Surgical History: Reports: Hx Cholecystectomy, Hx Gynecologic Surgery - r/o endometriosis, Hx Hysterectomy - Immunizations Hx Diphtheria, Pertussis, Tetanus Vaccination: Yes Review of Systems - Review of Systems Constitutional: No symptoms reported EENT: No symptoms reported Cardiovascular: No symptoms reported Respiratory: No symptoms reported Gastrointestinal: No symptoms reported Musculoskeletal: No symptoms reported Neurological/Psychological: See HPI, Other - dizziness -: Yes All other systems reviewed and negative Physical Exam - Vital signs Vitals: Temp Pulse Resp BP Pulse Ox 97.8 F 56 L 19 131/90 H 94 06/25/19 16:31 06/25/19 16:31 06/25/19 16:31 06/25/19 16:31 06/25/19 16:31 - General General appearance: Appears well In distress: None - HEENT Head: Normocephalic Pupils: PERRL Sinus: Tenderness - there is min TTP of the R frontal sinus diffusely Mouth/Lips: Normal Mucous membranes: Normal Pharynx: Normal Neck: Normal - Respiratory Respiratory status: No respiratory distress Breath sounds: Normal - Cardiovascular Rhythm: Regular Heart sounds: Normal auscultation Murmur: No - Abdominal Bowel sounds: Normal Tenderness: Nontender - Extremities General upper extremity: Normal inspection General lower extremity: Normal inspection - Neurological Neuro grossly intact: Yes Cognition: Normal Orientation: AAOx4 Speech: Normal Cranial nerves: Normal Motor strength normal: LUE, RUE, LLE, RLE Course - Re-evaluation Re-evalutation: 06/25/19 18:38 pt. felt better at time of d/c -- expressed desire to go home - Vital Signs Vital signs: Temp Pulse Resp BP Pulse Ox 97.8 F 56 L 19 131/90 H 94 06/25/19 16:31 06/25/19 16:31 06/25/19 16:31 06/25/19 16:31 06/25/19 16:31 - Laboratory Result Diagrams: 06/25/19 17:35 06/25/19 17:35 Laboratory results interpreted by me: 06/25/19 17:35 RDW 14.2 H - Diagnostic Test Radiology reviewed: Reports reviewed - ct- neg Discharge - Discharge Clinical Impression: Dizziness Condition: Stable Disposition: HOME, SELF-CARE Instructions: Dizziness ([facility]) Additional Instructions: rest, return if worse Referrals: DAINA FROST PA-C [Primary Care Provider] - Follow up as needed
--- NOTE | 2019-06-25 18:02 | RADIOLOGY REPORT (SQ) ---
EXAM DESCRIPTION: CT HEAD WITHOUT COMPLETED DATE/TIME: 06/25/2019 5:49 pm REASON FOR STUDY: dizziness COMPARISON: None. TECHNIQUE: Axial images acquired through the brain without intravenous contrast. Images reviewed wi th bone, brain and subdural windows. Additional sagittal and coronal reconstructions were generated. Images stored on PACS. All CT scanners at this facility use dose modulation, iterative reconstruction, and/or weight based d osing when appropriate to reduce radiation dose to as low as reasonably achievable (ALARA). [facility]: Dose Right [facility]: CareDose [facility]: Dose Right [facility]: Teradose 4D [facility]: [employer] RADIATION DOSE: 1043 mGy cm LIMITATIONS: None. FINDINGS: VENTRICLES: Normal size and contour. CEREBRUM: No masses. No hemorrhage. No midline shift. No evidence for acute infarction. Normal gra y/white matter differentiation. No areas of low density in the white matter. CEREBELLUM: No masses. No hemorrhage. No alteration of density. No evidence for acute infarction. EXTRAAXIAL SPACES: No fluid collections. No masses. ORBITS AND GLOBE: No intra- or extraconal masses. Normal contour of globe without masses. CALVARIUM: No fracture. PARANASAL SINUSES: No fluid or mucosal thickening. SOFT TISSUES: No mass or hematoma. OTHER: No other significant finding. IMPRESSION: No acute intracranial pathology. EVIDENCE OF ACUTE STROKE: NO. COMMENT: Quality ID # [id number]: Final reports with documentation of one or more dose reduction techniques (e.g., Automated exposure control, adjustment of the mA and/or kV according to patient size, use of iterative reconstruction technique) TECHNICAL DOCUMENTATION: JOB ID: [id number] [employer]- All Rights Reserved Reading location - IP/workstation name: [email or web address]
[2019-06-25 18:07] LABS: ABSOLUTE EOSINOPHILS # (AUTO) 0.1 10^3/uL (0.0-0.6); ABSOLUTE LYMPHOCYTES (AUTO) 1.7 10^3/uL (0.5-4.7); ABSOLUTE MONOCYTES (AUTO) 0.5 10^3/uL (0.1-1.4); ABSOLUTE NEUT (AUTO) 5.1 10^3/uL (1.7-8.2); BASOPHILS % (AUTO) 0.5 % (0-2); EOSINOPHILS % (AUTO) 1.9 % (0-6); HEMATOCRIT 42.5 % (36.0-47.0); HEMOGLOBIN 14.2 g/dL (12.0-15.5); LYMPHOCYTES % (AUTO) 22.7 % (13-45); MEAN CORPUSCULAR HEMOGLOBIN 30.5 pg (27.0-33.4); MEAN CORPUSCULAR HGB CONC 33.5 g/dL (32.0-36.0); MEAN CORPUSCULAR VOLUME 91 fl (80-97); MONOCYTES % (AUTO) 6.2 % (3-13); PLATELET COUNT 181 10^3/uL (150-450); RED BLOOD COUNT 4.67 10^6/uL (3.72-5.28); RED CELL DISTRIBUTION WIDTH 14.2 % (11.5-14.0); SEGMENTED NEUTROPHILS % (AUTO) 68.7 % (42-78); TOTAL CELLS COUNTED % (AUTO) 100 %; WHITE BLOOD COUNT 7.5 10^3/uL (4.0-10.5)
[2019-06-25 18:15] LABS: ALBUMIN 4.5 g/dL (3.5-5.0); ALKALINE PHOSPHATASE 67 U/L (38-126); ANION GAP 11 (5-19); ASPARTATE AMINO TRANSFERASE 22 U/L (14-36); BILIRUBIN,DIRECT 0.2 mg/dL (0.0-0.4); BILIRUBIN,TOTAL 0.5 mg/dL (0.2-1.3); BLOOD UREA NITROGEN 12 mg/dL (7-20); CALCIUM 9.8 mg/dL (8.4-10.2); CARBON DIOXIDE 25 mmol/L (22-30); CHLORIDE 107 mmol/L (98-107); GLUCOSE 79 mg/dL (75-110); POTASSIUM 4.3 mmol/L (3.6-5.0); TOTAL PROTEIN 7.7 g/dL (6.3-8.2)
[2019-06-25 18:56] VITALS: BP 118/67
== END 2019-06-25 18:57 | disposition home or self-care (01) ==
LOC: ER 16:13
DX: R42 Dizziness and giddiness (principal); R51 Headache; Z87.892 Personal history of anaphylaxis; Z88.7 Allergy status to serum and vaccine; Z88.5 Allergy status to narcotic agent
CPT/HCPCS: 36415; 70450; 80053; 85025; 99284

== ENCOUNTER 2020-08-28 11:45 | Emergency (ER) | payer OTHER ==
[2020-08-28 11:57] VITALS: BP 124/74
--- NOTE | 2020-08-28 12:43 | EKG REPORT ---
SEVERITY:- ABNORMAL ECG - SINUS RHYTHM JACQUI, CONSIDER BIATRIAL ABNORMALITIES : Confirmed by: Major Deluna MD 28-Aug-2020 12:42:45
--- NOTE | 2020-08-28 13:17 | ER Document Report ---
ED Medical Screen (RME) - General Chief Complaint: Abdominal Pain Stated Complaint: ABDOMINAL PAIN/CHEST PAIN Time Seen by Provider: 08/28/20 13:12 Primary Care Provider: DAINA FROST PA-C [Primary Care Provider] - Follow up as needed Mode of Arrival: Ambulatory Information source: Patient Notes: Patient is a 5-year-old female comes emergency room complaining of abdominal pain discomfort. Patient states that it started yesterday when she noticed it. She also states that when she lays down she can and put her hand on the area she feels like her a pulsation area. Has a cold is a stabbing pain that is periumbilical and does shoot to the back. Patient said past surgical history of a hysterectomy and a cholecystectomy. She denies any nausea or vomiting or d iarrhea currently. She does state that she had a noticeable change in her lower extremities when they become cold and numb. Patient denies history of smoking. Physical examination: Patient is a well-nourished well-developed 30-year-old female no apparent distress but appears somewhat uncomfortable on examination this afternoon. Cardiac: Shows a rate of 92 bpm and no auscultated murmurs. Lungs: Bilateral breath sounds increased clear auscultation. No rhonchi rales or wheeze are auscultated. Abdomen: Bowel sounds are present all 4 quadrants patient is mildly tender periumbilically in the sitting position. I am unable to palpate any pulsatile mass in this position. Further evaluation might need to be done in the back by other provider. I have greeted and performed a rapid initial assessment of this patient. A comprehensive ED assessment and evaluation of the patient, analysis of test results and completion of the medical decision making process will be conducted by additional ED providers. Dictation of this chart was performed using voice recognition software; therefore, there may be some unintended grammatical errors. Because of unable to palpate any pulsatile mass am not ordering any radiologic intervention at this time patient is to be light supine and a good examination done and then determine whether the radiologic intervention is necessary. TRAVEL OUTSIDE OF THE [place] IN LAST 30 DAYS: No - Related Data Allergies/Adverse Reactions: Tuberculin,Ppd,Multi-Puncture [From Tuberculin PPD Jen Test] Allergy (Severe, Verified 08/28/20 13:13) Anaphylaxis morphine Allergy (Verified 08/28/20 13:13) tramadol Adverse Reaction (Verified 08/28/20 13:13) VOMITING Past Medical History - Past Medical History Cardiac Medical History: Denies: Hx Coronary Artery Disease, Hx Heart Attack, Hx Hypertension Pulmonary Medical History: Reports: Hx Asthma - as a child and teenager Denies: Hx Bronchitis, Hx COPD, Hx Pneumonia Neurological Medical History: Denies: Hx Cerebrovascular Accident, Hx Seizures Renal/ Medical History: Denies: Hx Peritoneal Dialysis Musculoskeltal Medical History: Denies Hx Arthritis Psychiatric Medical History: Reports: Hx Depression Past Surgical History: Reports: Hx Cholecystectomy, Hx Gynecologic Surgery - r/o endometriosis, Hx Hysterectomy - Immunizations Hx Diphtheria, Pertussis, Tetanus Vaccination: Yes Physical Exam - Vital signs Vitals: Temp Pulse Resp BP Pulse Ox 98.1 F 92 16 124/74 100 08/28/20 11:54 08/28/20 11:54 08/28/20 11:54 08/28/20 11:54 08/28/20 11:54 Course - Vital Signs Vital signs: Temp Pulse Resp BP Pulse Ox 98.1 F 92 16 124/74 100 08/28/20 11:54 08/28/20 11:54 08/28/20 11:54 08/28/20 11:54 08/28/20 11:54 Doctor's Discharge - Discharge Referrals: DAINA FROST PA-C [Primary Care Provider] - Follow up as needed
[2020-08-28 14:28] LABS: ABSOLUTE EOSINOPHILS # (AUTO) 0.2 10^3/uL (0.0-0.6); ABSOLUTE LYMPHOCYTES (AUTO) 1.6 10^3/uL (0.5-4.7); ABSOLUTE MONOCYTES (AUTO) 0.4 10^3/uL (0.1-1.4); ABSOLUTE NEUT (AUTO) 4.4 10^3/uL (1.7-8.2); BASOPHILS % (AUTO) 0.4 % (0-2); EOSINOPHILS % (AUTO) 3.3 % (0-6); HEMATOCRIT 45.1 % (36.0-47.0); HEMOGLOBIN 15.5 g/dL (12.0-15.5); LYMPHOCYTES % (AUTO) 24.2 % (13-45); MEAN CORPUSCULAR HEMOGLOBIN 31.2 pg (27.0-33.4); MEAN CORPUSCULAR HGB CONC 34.4 g/dL (32.0-36.0); MEAN CORPUSCULAR VOLUME 91 fl (80-97); MONOCYTES % (AUTO) 5.4 % (3-13); PLATELET COUNT 139 10^3/uL (150-450); RED BLOOD COUNT 4.96 10^6/uL (3.72-5.28); RED CELL DISTRIBUTION WIDTH 13.8 % (11.5-14.0); SEGMENTED NEUTROPHILS % (AUTO) 66.7 % (42-78); TOTAL CELLS COUNTED % (AUTO) 100 %; WHITE BLOOD COUNT 6.7 10^3/uL (4.0-10.5)
[2020-08-28 14:33] LABS: APPEARANCE,URINE SLIGHTLY-CLOUDY; BILIRUBIN,URINE NEGATIVE (NEGATIVE); COLOR,URINE AMBER; GLUCOSE, URINE NEGATIVE (NEGATIVE); KETONES,URINE TRACE mg/dL (NEGATIVE); LEUKOCYTE ESTERASE,URINE TRACE (NEGATIVE); NITRITE,URINE NEGATIVE (NEGATIVE); PROTEIN,URINE 100 mg/dL (NEGATIVE); URINE SPECIFIC GRAVITY 1.036
[2020-08-28 14:47] LABS: ALBUMIN 4.8 g/dL (3.5-5.0); ALKALINE PHOSPHATASE 64 U/L (38-126); ANION GAP 11 (5-19); ASPARTATE AMINO TRANSFERASE 31 U/L (14-36); BILIRUBIN,DIRECT 0.2 mg/dL (0.0-0.4); BILIRUBIN,TOTAL 0.5 mg/dL (0.2-1.3); BLOOD UREA NITROGEN 14 mg/dL (7-20); CARBON DIOXIDE 24 mmol/L (22-30); CHLORIDE 106 mmol/L (98-107); GLUCOSE 97 mg/dL (75-110); POTASSIUM 4.2 mmol/L (3.6-5.0)
== END 2020-08-28 22:30 | disposition left against medical advice (07) ==
LOC: ER 11:45
DX: R10.33 Periumbilical pain (principal); R10.815 Periumbilic abdominal tenderness; R20.0 Anesthesia of skin; Z90.49 Acquired absence of other specified parts of digestive tract; Z90.710 Acquired absence of both cervix and uterus; Z87.892 Personal history of anaphylaxis; Z88.7 Allergy status to serum and vaccine; Z88.6 Allergy status to analgesic agent; Z88.5 Allergy status to narcotic agent; Z53.20 Procedure and treatment not carried out because of patient's decision for unspecified reasons
CPT/HCPCS: 36415; 80053; 81001; 83605; 85025; 87086; 93005; 93010; 99281